=== PATIENT | female | born 1940 | race Caucasian/White ===

== ENCOUNTER 2016-06-04 22:51 | Inpatient (IN) | payer MEDICARE ==
[~2016-06-04] VITALS: Ht 167.6 cm; Wt 85.7 kg
[~2016-06-04 22:51] MED LIST: LEVA500T33 PO; LISI2.5T55 PO; LORT5TAB PO; METO25 PO; METR-1 PO; PROM25SU8 PO; Z.0.UNKNOWN
[2016-06-04 22:53] VITALS: BP 217/93; PULSE 90; RESP 16; TEMP 97.6; O2SAT 97
[2016-06-04] MEDS ORDERED: ASPI81CH CHEW (23:19)
[2016-06-04] MEDS ORDERED: SIMV5TAB3 PO (23:19)
[2016-06-04] MEDS ORDERED: FISHCAP4 PO (23:19)
[2016-06-04] MEDS ORDERED: LISI2.5T3 PO (23:19)
[2016-06-04] MEDS ORDERED: NIAC500T5 PO (23:19)
[2016-06-04] MEDS ORDERED: MUCI30TA2 PO (23:19)
[2016-06-04] MEDS ORDERED: CENTTAB PO (23:19)
[2016-06-04 23:22] VITALS: RESP 18; O2SAT 96
[2016-06-04 23:24] VITALS: BP 159/71; PULSE 80; RESP 19; O2SAT 98
--- NOTE | 2016-06-04 23:36 | PD ---
HPI Chief Complaint: Chest Pain Time Seen by Provider: 23:31 Travel History International Travel<30 days: No Contact w/Intl Traveler<30days: No Traveled to known affect area: No History of Present Illness HPI 75-year-old female presents to the emergency department by private transportation the care of family for evaluation of back pain with referred right upper extremity pain. Patient reports that 2 days ago she had bilateral upper extremity aching that resolved spontaneously. Patient reports she's had previous myocardial infarction with stent placement. Patient states when pain began this evening at 9 PM it was 9/10 intensity mid scapular radiating into the right upper extremity and patient became concerned that she may have been having angina or heart attack. Patient states that she felt like she had some mild indigestion and did have some belching. He should states that she did drink Coca-Cola which provided no relief and did take 2 regular strength aspirin prior to arrival to the emergency prior. Patient reports that her nitroglycerin was no longer effective so she used a friend's nitroglycerin times one which resolved her pain to 0/10 in intensity. Patient denies any associated sweats or nausea vomiting or shortness of breath. Patient denies abdominal pain. Patient reports that she is status post cholecystectomy. Patient has hypertension and dyslipidemia denies diabetes but does admit to ongoing tobacco use one pack per day as well as family history of heart attack with father who was a smoker. Patient rates her discomfort at this time 0/10 intensity. PFSH Past Medical History Narrative Medical CAD myocardial infarction cardiac catheterization with stent placement hypertension dyslipidemia CVA COPD cholecystectomy tobacco use family history heart disease; nursing notes reviewed Blood Disorders: No Heart Rhythm Problems: No Cancer: No Cardiac Catheterization: Yes Cardiovascular Problems: Yes High Cholesterol: Yes Chest Pain: No Congestive Heart Failure: No Cerebrovascular Accident: Yes Coronary Artery Disease: Yes Diabetes: No Endocrine: No Genitourinary: No Hypertension: Yes Immune Disorder: No Musculoskeletal: No Neurologic: No Psychiatric: No Reproductive: No Respiratory: No Myocardial Infarction: No Past Surgical History Abdominal Surgery: Yes (GALLBLADDER) AICD: No Arteriovenous Shunt: No Cardiac Surgery: No Cholecystectomy: Yes Coronary Stent: Yes Ear Surgery: No Endocrine Surgery: No Eye Surgery: No Genitourinary Surgery: No Gynecologic Surgery: No Insulin Pump: No Joint Replacement: No Oral Surgery: No Pacemaker: No Thoracic Surgery: No Other Surgery: Yes (GALLBLADDER 1998) Social History Alcohol Use: No Tobacco Use: Yes (1 PPD) Substance Use: No Allergies-Medications (Allergen,Severity, Reaction): Coded Allergies: Erythromycin (Verified Allergy, Severe, FINGERS SWELL, 06/04/16) Reported Meds & Prescriptions Reported Meds & Active Scripts Active Reported Aspirin 81 Mg Chew 162 Mg CHEW DAILY Niacin 500 Mg Tab 500 Mg PO DAILY Mucinex DM (Dextromethorphan-Guaifenesin) 30-600 Mg Tab 1 Tab PO DAILY PRN Centrum Silver (Multiple Vitamins W/ Minerals) 1 Tab 1 Tab PO DAILY Fish Oil + D3 (Fish Oil-Cholecalciferol) 1,200-1,000 Mg-Unit Cap 1 Cap PO DAILY Lisinopril 2.5 Mg Tab 2.5 Mg PO BID Simvastatin 5 Mg Tab 5 Mg PO DAILY Review of Systems Except as stated in HPI: all other systems reviewed are Neg Physical Exam Narrative GENERAL: Well-developed well-nourished female in no acute distress no respiratory distress SKIN: Warm and dry. HEAD: Normocephalic. EYES: No scleral icterus. No injection or drainage. NECK: Supple, trachea midline. No JVD or lymphadenopathy. CARDIOVASCULAR: Regular rate and rhythm without murmurs, gallops, or rubs. Radial and dorsalis pedis pulses 2+ to palpation bilaterally RESPIRATORY: Breath sounds equal bilaterally. No accessory muscle use. GASTROINTESTINAL: Abdomen soft, non-tender, nondistended. MUSCULOSKELETAL: No cyanosis, or edema. BACK: Nontender without obvious deformity. No CVA tenderness. Data Data Last Documented VS Vital Signs Date Time Temp Pulse Resp B/P Pulse Ox O2 Delivery O2 Flow Rate FiO2 06/05/16 00:59 70 19 124/58 98 06/04/16 23:26 Nasal Cannula 2 06/04/16 22:53 97.6 Orders Electrocardiogram (06/04/16 23:13) Complete Blood Count With Diff (06/04/16 23:13) Basic Metabolic Panel (Bmp) (06/04/16 23:13) Ckmb (Isoenzyme) Profile (06/04/16 23:13) Troponin I (06/04/16 23:13) Chest, Single Ap (06/04/16 23:13) Iv Access Insert/Monitor (06/04/16 23:13) Ecg Monitoring (06/04/16 23:13) Oxygen Administration (06/04/16 23:13) Oximetry (06/04/16 23:13) Act Partial Throm Time (Ptt) (06/04/16 23:31) Prothrombin Time / Inr (Pt) (06/04/16 23:31) Admit Order (Ed Use Only) (06/05/16 ) ^ Saline Lock (06/05/16 01:00) Resp Oxygen Federico C Titrat 1-4 L (06/05/16 ) Notify Dr: Other (06/05/16 01:00) Sodium Chloride 0.9% Flush (Ns Flush) (06/05/16 09:00) Sodium Chloride 0.9% Flush (Ns Flush) (06/05/16 01:00) Labs Laboratory Tests Test 06/04/16 23:14 White Blood Count 8.5 TH/MM3 Red Blood Count 5.07 MIL/MM3 Hemoglobin 15.1 GM/DL Hematocrit 46.2 % Mean Corpuscular Volume 91.2 FL Mean Corpuscular Hemoglobin 29.8 PG Mean Corpuscular Hemoglobin 32.7 % Concent Red Cell Distribution Width 13.7 % Platelet Count 170 TH/MM3 Mean Platelet Volume 10.0 FL Neutrophils (%) (Auto) 52.7 % Lymphocytes (%) (Auto) 38.0 % Monocytes (%) (Auto) 7.2 % Eosinophils (%) (Auto) 1.9 % Basophils (%) (Auto) 0.2 % Neutrophils # (Auto) 4.5 TH/MM3 Lymphocytes # (Auto) 3.2 TH/MM3 Monocytes # (Auto) 0.6 TH/MM3 Eosinophils # (Auto) 0.2 TH/MM3 Basophils # (Auto) 0.0 TH/MM3 CBC Comment DIFF FINAL Differential Comment Prothrombin Time 10.1 SEC Prothromb Time International 0.9 RATIO Ratio Activated Partial 27.5 SEC Thromboplast Time Sodium Level 139 MEQ/L Potassium Level 4.0 MEQ/L Chloride Level 101 MEQ/L Carbon Dioxide Level 29.8 MEQ/L Anion Gap 8 MEQ/L Blood Urea Nitrogen 19 MG/DL Creatinine 1.11 MG/DL Estimat Glomerular Filtration 48 ML/MIN Rate Random Glucose 102 MG/DL Calcium Level 9.3 MG/DL Total Creatine Kinase 75 U/L Troponin I 0.05 NG/ML MDM Medical Decision Making Medical Screen Exam Complete: Yes Emergency Medical Condition: Yes Medical Record Reviewed: Yes Interpretation(s) EKG was sinus rhythm rate [address] elevation or injury pattern change Q wave inferiorly as well as QS in lead V3 age-indeterminate no acute ST elevation CXR: nad CBC & BMP Diagram 06/04/16 23:14 Vital Signs Date Time Temp Pulse Resp B/P Pulse Ox O2 Delivery O2 Flow Rate FiO2 06/05/16 00:59 70 19 124/58 98 06/04/16 23:26 98 Nasal Cannula 2 06/04/16 23:24 80 19 159/71 98 06/04/16 23:22 18 96 Room Air 06/04/16 23:00 87 18 96 Room Air 06/04/16 22:53 97.6 90 16 217/93 97 Troponin I: 0.05 ck: 75 Differential Diagnosis Atypical chest pain, unstable angina/ACS, myocardial infarction, aortic dissection, PE, musculoskeletal pain Narrative Course Patient is on monitoring manager IV access obtained patient is already taken 650 mg of aspirin prior to arrival and one syllable nitroglycerin and presents without chest pain at this time 0/10 in intensity. Plan is to obtain cardiac enzymes EKG reveals no acute ST elevation and will admit patient for further cardiac evaluation Patient waiting comfortably on lab results voicing no concerns or complaints At 1 AM troponin I and CK resulted and found to be in normal range with troponin I upper limit of normal at 0.05; patient continues to deny any recurrent indigestion back pain or arm discomfort also denies any shortness of breath sweats had no nausea or vomiting. Discomfort remains over 10 in intensity. Patient is aware of plan and recommendation for admission and is agreeable to this. Physician Communication Physician Communication discussed with patient's PCP and cardiology contact lens flashing puncher coverage Diagnosis Primary Impression: ACS (acute coronary syndrome) Admitting Information Admitting Physician Requests: Observation Ximena Torres MD Jun 04, 2016 23:36
--- NOTE | 2016-06-04 23:57 | RADRPT ---
EXAM DATE/TIME: 06/04/2016 23:29 [facility] COMPARISON: No previous studies available for comparison. INDICATIONS : Chest pain. MEDICAL HISTORY : Coronary artery disease. SURGICAL HISTORY : Coronary artery stent. ENCOUNTER: Initial ACUITY: 1 day PAIN SCORE: 6/10 LOCATION: Bilateral chest FINDINGS: A single view of the chest demonstrates the lungs to be symmetrically aerated without evidence of mas s, infiltrate or effusion. The cardiomediastinal contours are unremarkable. Osseous structures are intact. CONCLUSION: No evidence of acute cardiopulmonary disease. Rudi Bah MD on June 04, 2016 at 23:55 Board Certified Radiologist. This report was verified electronically.
[2016-06-04 23:59] LABS: AUTOMATED NEUTROPHIL # 4.5 TH/MM3 (1.8-7.7); BASOPHIL % 0.2 % (0.0-2.0); EOSINOPHIL # 0.2 TH/MM3 (0-0.4); EOSINOPHIL % 1.9 % (0.0-4.0); HEMATOCRIT 46.2 % (35.0-46.0); HEMO FLAGS DIFF FINAL; LYMPHOCYTE # 3.2 TH/MM3 (1.0-4.8); MEAN CELL VOLUME 91.2 FL (80.0-100.0); MEAN CORPUSCULAR HEMOGLOBIN 29.8 PG (27.0-34.0); MEAN CORPUSCULAR HGB CONC 32.7 % (32.0-36.0); MONO % 7.2 % (0.0-8.0); NEUT % 52.7 % (16.0-70.0); PLATELET COUNT 170 TH/MM3 (150-450); RED BLOOD COUNT 5.07 MIL/MM3 (4.00-5.30); RED CELL DISTRIBUTION WIDTH 13.7 % (11.6-17.2); WHITE BLOOD COUNT 8.5 TH/MM3 (4.0-11.0)
[2016-06-05] VITALS (15 sets, daily range): BP systolic 124–179; BP diastolic 58–81; PULSE 49–77; RESP 16–22; TEMP 98–98.4; O2SAT 94–98
[2016-06-05 00:15] LABS: BICARBONATE 29.8 MEQ/L (21.0-32.0)
[2016-06-05] MEDS ORDERED: SODIUM CHLORIDE 0.9% FLUSH 10 ML FLUSH IVF PRN (01:00)
[2016-06-05 01:04] LABS: APTT (PATIENT) 27.5 SEC (24.3-30.1); INTERNATIONAL NORMALIZED RATIO 0.9 RATIO; PROTHROMBIN TIME - PATIENT 10.1 SEC (9.8-11.6)
[2016-06-05] MEDS ORDERED: HEPARIN SODIUM - IV 10,000 UNITS/10 ML VIAL IV ONE (01:15)
[2016-06-05] MEDS ORDERED: NALOXONE HCL 0.4 MG/ML AMP IV PRN (01:30)
[2016-06-05] MEDS ORDERED: SODIUM CHLORIDE 0.9% FLUSH 10 ML FLUSH IV FLUSH PRN (01:30)
[2016-06-05] MEDS ORDERED: DEXTROMETHORPHAN GUAIFENESIN PO PRN (01:30)
[2016-06-05] MEDS ORDERED: ACETAMINOPHEN 325 MG TAB PO PRN (01:30)
[2016-06-05] MEDS: HEPARIN-D5W INJ 250 ML IV SCH ×2 (01:44→22:29)
[2016-06-05] MEDS ORDERED: PILL SPLITTER OTHER PRN (01:45)
[2016-06-05 05:49] LABS: HEMATOCRIT 39.4 % (35.0-46.0); MEAN CELL VOLUME 90.3 FL (80.0-100.0); MEAN CORPUSCULAR HEMOGLOBIN 30.8 PG (27.0-34.0); MEAN CORPUSCULAR HGB CONC 34.1 % (32.0-36.0); PLATELET COUNT 153 TH/MM3 (150-450); RED BLOOD COUNT 4.36 MIL/MM3 (4.00-5.30); RED CELL DISTRIBUTION WIDTH 13.5 % (11.6-17.2); REVIEW FLAG FINAL; WHITE BLOOD COUNT 7.1 TH/MM3 (4.0-11.0)
[2016-06-05 06:01] LABS: APTT (PATIENT) 65.5 SEC (24.3-30.1); PROTHROMBIN TIME - PATIENT 10.5 SEC (9.8-11.6)
[2016-06-05] MEDS ORDERED: HEPARIN SODIUM - IV 10,000 UNITS/10 ML VIAL IV PRN ×2 (07:15)
[2016-06-05 08:14] LABS: APTT (PATIENT) 45.3 SEC (24.3-30.1)
[2016-06-05] MEDS: SODIUM CHLORIDE 0.9% FLUSH 10 ML FLUSH IV FLUSH SCH ×2 (09:00→21:00)
[2016-06-05] MEDS ORDERED: SODIUM CHLORIDE 0.9% FLUSH 10 ML FLUSH IV FLUSH SCH (09:00)
[2016-06-05] MEDS ORDERED: NON-FORMULARY DRUG (Fish Oil-Cholecalciferol (Fish Oil + D3) 1 CAP) PO SCH (09:00)
--- NOTE | 2016-06-05 10:36 | HHI.HP ---
History of Present Illness Service FP Primary Care Physician Alcides Zarate, DO Admission Diagnosis ACS Diagnoses: (1) ACS (acute coronary syndrome) Diagnosis: Principal (2) CAD (coronary artery disease) Diagnosis: Secondary (3) Hyperlipidemia Diagnosis: Secondary (4) Hypertension Diagnosis: Secondary Review of Systems Cardiovascular: COMPLAINS OF: Chest pain Gastrointestinal: COMPLAINS OF: Nausea Musculoskeletal: COMPLAINS OF: Joint pain, Back pain Past Family Social History Allergies: Coded Allergies: Erythromycin (Verified Allergy, Severe, FINGERS SWELL, 06/04/16) Past Medical History CAD HTN HLD COPD Past Surgical History CHOLECYSTECTOMY Reported Medications Inpatient Medications Acetaminophen (Tylenol) 650 mg Q4H PRN PO TEMP > 100.4; Start 06/05/16 at 01:30 Aspirin (Aspirin Chew) 162 mg DAILY CHEW ; Start 06/05/16 at 09:00 Heparin Sodium (Porcine) (Heparin Inj) 5,000 units UNSCH PRN IV APTT LESS THAN 25; Start 06/05/16 at 07:15 Heparin Sodium (Porcine) 2500 units 2,500 units UNSCH PRN IV APTT 25 TO 39; Start 06/05/16 at 07:15 Heparin Sodium/ Dextrose (Heparin-D5W Inj) 250 ml @ 0 mls/hr TITRATE IV Last administered on 06/05/16t 01:44; Start 06/05/16 at 01:15 Lisinopril (Prinivil) 2.5 mg BID PO BPM; Start 06/05/16 at 09:00 Miscellaneous (Pill Splitter) 1 ea UNSCH PRN OTHER SEE LABEL COMMENTS; Start at 01:45 Multivitamins (Theragran) 1 tab DAILY PO NS; Start 06/05/16 at 09:00 Naloxone HCl (Narcan Inj) 0.4 mg UNSCH PRN IV SEE LABEL COMMENTS; Start at 01:30 Niacin (Slo-Niacin) 500 mg DAILY PO CM; Start 06/05/16 at 09:00 Non-Formulary Medication 1 cap DAILY PO NS; Start 06/05/16 at 09:00; Stop at 09:00; Status DC Patient Own Medication PT OWN MED: Dextromethorphan-Guai... DAILY PRN PO CHEST CONGESTION AND/OR COUGH; Start 06/05/16 at 01:30; Status Hold Pravastatin Sodium (Pravachol) 10 mg DAILY PO CM; Start 06/05/16 at 09:00 Sodium Chloride (NS Flush) 2 ml BID IV FLUSH ; Start 06/05/16 at 09:00 Active Ordered Medications Inpatient Medications Acetaminophen (Tylenol) 650 mg Q4H PRN PO TEMP > 100.4; Start 06/05/16 at 01:30 Aspirin (Aspirin Chew) 162 mg DAILY CHEW ; Start 06/05/16 at 09:00 Heparin Sodium (Porcine) (Heparin Inj) 5,000 units UNSCH PRN IV APTT LESS THAN 25; Start 06/05/16 at 07:15 Heparin Sodium (Porcine) 2500 units 2,500 units UNSCH PRN IV APTT 25 TO 39; Start 06/05/16 at 07:15 Heparin Sodium/ Dextrose (Heparin-D5W Inj) 250 ml @ 0 mls/hr TITRATE IV Last administered on 06/05/16t 01:44; Start 06/05/16 at 01:15 Lisinopril (Prinivil) 2.5 mg BID PO BPM; Start 06/05/16 at 09:00 Miscellaneous (Pill Splitter) 1 ea UNSCH PRN OTHER SEE LABEL COMMENTS; Start at 01:45 Multivitamins (Theragran) 1 tab DAILY PO NS; Start 06/05/16 at 09:00 Naloxone HCl (Narcan Inj) 0.4 mg UNSCH PRN IV SEE LABEL COMMENTS; Start at 01:30 Niacin (Slo-Niacin) 500 mg DAILY PO CM; Start 06/05/16 at 09:00 Non-Formulary Medication 1 cap DAILY PO NS; Start 06/05/16 at 09:00; Stop at 09:00; Status DC Patient Own Medication PT OWN MED: Dextromethorphan-Guai... DAILY PRN PO CHEST CONGESTION AND/OR COUGH; Start 06/05/16 at 01:30; Status Hold Pravastatin Sodium (Pravachol) 10 mg DAILY PO CM; Start 06/05/16 at 09:00 Sodium Chloride (NS Flush) 2 ml BID IV FLUSH ; Start 06/05/16 at 09:00 Family History father with an [place] Mother of colon cancer Social History smokes a pack per day for 50 years drinks burbon daily Physical Exam Vital Signs Vital Signs Date Time Temp Pulse Resp B/P Pulse Ox O2 Delivery O2 Flow Rate FiO2 06/05/16 10:14 58 16 179/73 97 06/05/16 10:14 49 143/64 94 06/05/16 08:10 98 Nasal Cannula 2.00 06/05/16 08:00 67 18 164/70 95 06/05/16 06:15 61 18 150/59 96 06/05/16 03:55 69 18 140/65 98 06/05/16 01:40 98 Nasal Cannula 2.00 06/05/16 00:59 70 19 124/58 98 06/04/16 23:26 98 Nasal Cannula 2 06/04/16 23:24 80 19 159/71 98 06/04/16 23:22 18 96 Room Air 06/04/16 23:00 87 18 96 Room Air 06/04/16 22:53 97.6 90 16 217/93 97 Physical Exam GENERAL: This is a well-nourished, well-developed patient, in no apparent distress. SKIN: No rashes, ecchymoses or lesions. Cool and dry. HEAD: Atraumatic. Normocephalic. No temporal or scalp tenderness. EYES: Pupils equal round and reactive. Extraocular motions intact. No scleral icterus. No injection or drainage. ENT: Nose without bleeding, purulent drainage or septal hematoma. Throat without erythema, tonsillar hypertrophy or exudate. Uvula midline. Airway patent. NECK: Trachea midline. No JVD or lymphadenopathy. Supple, nontender, no meningeal signs. CARDIOVASCULAR: Regular rate and rhythm without murmurs, gallops, or rubs. RESPIRATORY: Clear to auscultation. Breath sounds equal bilaterally. No wheezes , rales, or rhonchi. GASTROINTESTINAL: Abdomen soft, positive epigastric and r upper quadrant tenderness nondistended. No hepato-splenomegaly, or palpable masses. No guarding. MUSCULOSKELETAL: Extremities without clubbing, cyanosis, or edema. No joint tenderness, effusion, or edema noted. No calf tenderness. Negative Homans sign bilaterally. NEUROLOGICAL: Awake and alert. Cranial nerves II through XII intact. Motor and sensory grossly within normal limits. Five out of 5 muscle strength in all muscle groups. Normal speech. Laboratory Laboratory Tests Test 06/04/16 06/05/16 06/05/16 23:14 05:25 07:40 White Blood Count 8.5 7.1 Red Blood Count 5.07 4.36 Hemoglobin 15.1 13.4 Hematocrit 46.2 39.4 Mean Corpuscular Volume 91.2 90.3 Mean Corpuscular Hemoglobin 29.8 30.8 Mean Corpuscular Hemoglobin 32.7 34.1 Concent Red Cell Distribution Width 13.7 13.5 Platelet Count 170 153 Mean Platelet Volume 10.0 9.7 Neutrophils (%) (Auto) 52.7 Lymphocytes (%) (Auto) 38.0 Monocytes (%) (Auto) 7.2 Eosinophils (%) (Auto) 1.9 Basophils (%) (Auto) 0.2 Neutrophils # (Auto) 4.5 Lymphocytes # (Auto) 3.2 Monocytes # (Auto) 0.6 Eosinophils # (Auto) 0.2 Basophils # (Auto) 0.0 CBC Comment DIFF FINAL Differential Comment Prothrombin Time 10.1 10.5 Prothromb Time International 0.9 1.0 Ratio Activated Partial 27.5 65.5 45.3 Thromboplast Time Sodium Level 139 Potassium Level 4.0 Chloride Level 101 Carbon Dioxide Level 29.8 Anion Gap 8 Blood Urea Nitrogen 19 Creatinine 1.11 Estimat Glomerular Filtration 48 Rate Random Glucose 102 Calcium Level 9.3 Total Creatine Kinase 75 Troponin I 0.05 0.55 Result Diagram: 06/05/1652406/04/16 231 Imaging Last 24 hours Impressions Chest X-Ray 06/04/16 2313 Signed Impressions: Service Date/Time: Saturday, June 04, 2016 23:29 - CONCLUSION: No evidence of acute cardiopulmonary disease. Rudi Bah MD Course no further cp since in ED Assessment and Plan Problem List: (1) ACS (acute coronary syndrome) Status: Acute (2) CAD (coronary artery disease) Status: Acute Plan: cardiology consult bartholemew (3) Hyperlipidemia Status: Acute (4) Hypertension Status: Acute (5) Epigastric abdominal pain Status: Acute Plan: may be gastric or biliary in nature order hemoccult and us of abdomen Assessment and Plan ACS, HTN, HLD, EPIGASTRIC PAIN Discussed Condition With patient and daughter Physician Attestation The exam, history, and the medical decision-making described in the above note were completed with the assistance of the mid-level provider. I reviewed and agree with the findings presented. I attest that I had a [id number] encounter with the patient on the same day, and personally performed and documented my assessment and findings in the medical record. Alcides Zarate DO Jun 05, 2016 10:35
[2016-06-05] MEDS: MULTIVITAMIN TAB PO SCH (10:45)
[2016-06-05] MEDS: NIACIN 500 MG EXTENDED RELEASE TAB PO SCH (10:45)
[2016-06-05] MEDS: PRAVASTATIN SOD 10 MG TAB PO SCH (10:45)
[2016-06-05] MEDS: ASPIRIN 81 MG CHEW TAB CHEW SCH (10:45)
[2016-06-05] MEDS: LISINOPRIL 5 MG TAB PO SCH ×2 (10:46→21:20)
--- NOTE | 2016-06-05 12:35 | RADRPT ---
EXAM DATE/TIME: 06/05/2016 11:06 [facility] COMPARISON: CT ABDOMEN & PELVIS W CONTRAST, June 08, 2010, 16:51. INDICATIONS : Abdominal pain. MEDICAL HISTORY : Hypercholesterolemia. Hypertension. CVA. CAD. SURGICAL HISTORY : Coronary artery stent. Cholecystectomy. Cardiac cath. ENCOUNTER: Initial ACUITY: 1 day PAIN SCORE: 4/10 LOCATION: Abdomen. MEASUREMENTS: LIVER: 17.1 cm length COMMON DUCT: 4 mm RIGHT KIDNEY: 10.2 x 4.6 x 5.6 cm LEFT KIDNEY: 10.8 x 5.8 x 5.7 cm SPLEEN: 10.4 cm length AORTA: 2.2cm maximal FINDINGS: LIVER: Liver is diffusely hyperechoic indicating mild hepatic steatosis. No focal mass identified. Portal ve nous flow is hepatopedal. COMMON DUCT: No intraluminal mass or stone visualized. GALLBLADDER: Status post cholecystectomy. PANCREAS: The visualized portions are within normal limits. RIGHT KIDNEY: No hydronephrosis, stone or mass. LEFT KIDNEY: No hydronephrosis, stone or mass. SPLEEN: No focal lesion. AORTA: Non aneurysmal. IVC: Within normal limits. CONCLUSION: Mild hepatic steatosis. Willie Jacobson MD on June 05, 2016 at 12:32 Board Certified Radiologist. This report was verified electronically.
--- NOTE | 2016-06-05 16:11 | MB ---
cc: SHUKRI VASQUES DATE OF CONSULTATION: 06/05/2016. REASON FOR CONSULTATION: Chest pain / non S-T elevation myocardial infarction. HISTORY OF PRESENT ILLNESS: 75-year-old female with past medical history significant for coronary artery disease status post percutaneous coronary intervention in the setting of a heart attack, hypertension, hyperlipidemia, CVA, COPD who presented to the emergency department for evaluation of back pain with associated right upper extremity pain. She reports the pain began yesterday at 9:00 p.m. and it was 9/ 10 in intensity, it was mid-scapula radiating to the right upper extremity for which she became concerned and presented to the emergency department for evaluation. Of note, this pain was not like the pain she had when she had the heart attack. She reports the discomfort in the back and the shoulders went away with nitroglycerin sublingual. She denies sweats, nausea or vomiting, diarrhea, fevers, chills, abdominal pain, lightheadedness. EKG shows sinus rhythm with nonspecific S-T changes. Troponin markers are trending up with the highest being 0.69. Thus cardiology has been consulted for further management and evaluation. REVIEW OF SYSTEMS: Negative except for that mentioned in the history of present illness. PAST MEDICAL HISTORY: 1. Coronary artery disease status post myocardial infarction and stents. 2. Hypertension. 3. Hyperlipidemia. 4. CVA. 5. COPD. 6. Cholecystectomy. 7. Tobacco use. HOME MEDICATIONS: 1. Aspirin 81 milligrams p.o. daily. 2. Lisinopril 2.5 milligrams p.o. daily. 3. Niacin 500 milligrams p.o. daily. 4. Simvastatin 5 milligrams p.o. daily. SOCIAL HISTORY: Tobacco use - yes. No alcohol or illicit drug use. ALLERGIES: ERYTHROMYCIN. PHYSICAL EXAMINATION: VITAL SIGNS: Temperature 97, respiratory rate 18, heart rate 58, blood pressure 143/64, O2 sat 97% 2L NC. GENERAL: She is awake, alert and oriented times three in no acute distress. HEAD, EYES, EARS, NOSE, THROAT/NECK: The patient has no jugular venous distention. No carotid bruits. HEART: Regular rate and rhythm. There are no murmurs, rubs or gallops. LUNGS: Clear to auscultation bilaterally. ABDOMEN: The abdomen is soft, nontender and nondistended with positive bowel sounds. EXTREMITIES: There is no cyanosis or edema. Pulses throughout. LABORATORY DATA: Hemoglobin 13, hematocrit 34, platelet count 153,000. Coagulation: INR was one. Chemistries: Sodium 139, potassium 4.0, BUN 19, creatinine 1.1. Troponin 0.05, 0.55 and 0.69. IMAGING STUDIES: Chest x-ray: No acute pulmonary process. Abdomen: Mild hepatic steatosis. EKGS: EKG shows sinus rhythm with left ventricular hypertrophy right voltage, no specific ST changes. Echocardiogram done in 2006 shows ejection fraction of 50% with inferior hypokinesis. [facility] [address] Dr. De Leon RCA 3.0 x 28 mm bare-metal stent. ASSESSMENT AND PLAN: 75-year-old female with known coronary artery disease admitted with NSTEMI and symptoms of angina. She remains afebrile, hemodynamically stable and chest pain -free. On Heparin drip. Given the patient's presentation, and elevated troponin' s, I think it would reasonable to pursue a left heart catheterization / percutaneous coronary intervention to further address progression of coronary artery disease. The risks and benefits of left heart catheterization / percutaneous coronary intervention including but not limited to neurovascular trauma, acute kidney injury, bleeding, stroke, emergent bypass surgery and . The patient understands the risks and is willing to proceed. Recommendations: 1. Keep NPO aftermidnight for [facility] in AM 2. Continue aggressive medical management for NSTEMI with aspirin, heparin drip , beta blockers, DAWIT inhibitors and statins 3. 2-D echocardiogram. 4. Continue telemetry monitoring. Further therapy to be determined. Thank you for the opportunity to take part in the care of this patient. MD RAHUL Joseph/JCAngella /2:55 PM /3:18 PM VALERIANO
[2016-06-05] MEDS ORDERED: LORazepam 0.5 MG TAB PO ONE (17:30)
[2016-06-05 17:36] LABS: APTT (PATIENT) 40.7 SEC (24.3-30.1)
[2016-06-05] MEDS ORDERED: CHLORHEXIDINE GLUCONATE 2 % 1 PACK (2 CLOTHS)(extra cloths) TOPICAL PRN (18:15)
--- NOTE | 2016-06-05 18:33 | EKG ---
Date Performed: 06/05/2016 Time Performed: 10:53:02 PTAGE: 75 years EKG: SINUS BRADYCARDIA POSSIBLE LEFT ATRIAL ENLARGEMENT LEFT VENTRICULAR HYPERTROPHY AND ST-T CH ARBEN ABNORMAL ECG PREVIOUS TRACING : 06/05/2016 06.11 Compared to prior tracing no significant change DOCTOR: Bull Lazar Interpretating Date/Time 06/05/2016 18:32:05
--- NOTE | 2016-06-05 18:37 | EKG ---
Date Performed: 06/05/2016 Time Performed: 06:11:38 PTAGE: 75 years EKG: SINUS BRADYCARDIA LEFT VENTRICULAR HYPERTROPHY AND ST-T CHANGE ABNORMAL ECG PREVIOUS TRACING : 06/08/2010 15.30 Compared to the previous tracing rate slower DOCTOR: Bull Lazar Interpretating Date/Time 06/05/2016 18:36:26
[2016-06-05] MEDS: CHLORHEXIDINE GLUCONATE 2 % 1 PACK (2 CLOTHS)(taper/protocol) TOPICAL SCH (21:21)
[2016-06-05] MEDS ORDERED: LORazepam 0.5 MG TAB PO PRN (21:30)
--- NOTE | 2016-06-05 22:27 | EKG ---
Date Performed: 06/04/2016 Time Performed: 23:03:32 PTAGE: 75 years EKG: Sinus rhythm WITH SINUS ARRHYTHMIA LEFT VENTRICULAR HYPERTROPHY AND ST-T CHANGE ABNORMAL ECG Compared to prior tr acing no significant change DOCTOR: Bull Lazar Interpretating Date/Time 06/05/2016 22:26:01
[2016-06-06] VITALS (10 sets, daily range): BP systolic 116–181; BP diastolic 57–97; PULSE 54–68; RESP 19–25; TEMP 97.6–98.3; O2SAT 95–96
[2016-06-06 06:18] LABS: AUTOMATED NEUTROPHIL # 2.1 TH/MM3 (1.8-7.7); BASOPHIL % 0.4 % (0.0-2.0); EOSINOPHIL # 0.2 TH/MM3 (0-0.4); EOSINOPHIL % 3.2 % (0.0-4.0); HEMATOCRIT 42.7 % (35.0-46.0); HEMO FLAGS DIFF FINAL; LYMPH % 50.8 % (9.0-44.0); LYMPHOCYTE # 2.8 TH/MM3 (1.0-4.8); MEAN CELL VOLUME 91.8 FL (80.0-100.0); MEAN CORPUSCULAR HEMOGLOBIN 29.4 PG (27.0-34.0); MONO % 7.3 % (0.0-8.0); NEUT % 38.3 % (16.0-70.0); PLATELET COUNT 132 TH/MM3 (150-450); RED BLOOD COUNT 4.65 MIL/MM3 (4.00-5.30); RED CELL DISTRIBUTION WIDTH 13.6 % (11.6-17.2); WHITE BLOOD COUNT 5.5 TH/MM3 (4.0-11.0)
[2016-06-06 06:27] LABS: APTT (PATIENT) 41.1 SEC (24.3-30.1)
[2016-06-06 06:42] LABS: ALT (GPT) 18 U/L (10-53); ANION GAP 6 MEQ/L (5-15); AST (GOT) 17 U/L (15-37); BICARBONATE 27.6 MEQ/L (21.0-32.0); BLOOD UREA NITROGEN 19 MG/DL (7-18); CHLORIDE 107 MEQ/L (98-107); GLOMERULAR FILTRATION RATE 68 ML/MIN (>89); POTASSIUM 4.2 MEQ/L (3.5-5.1); SODIUM (NA) 141 MEQ/L (136-145)
[2016-06-06 06:46] LABS: ALKALINE PHOSPHATASE 94 U/L (45-117); TOTAL BILIRUBIN ADULT 0.2 MG/DL (0.2-1.0)
--- NOTE | 2016-06-06 08:51 | HHI.PR ---
Subjective Remarks Patient resting comfortably in bed. Denies any CP, back pain, or SOB. Scheduled for heart cath today. Objective Vital Signs Date Time Temp Pulse Resp B/P Pulse Ox O2 Delivery O2 Flow Rate FiO2 06/06/16 06:00 59 06/06/16 04:00 98.3 62 25 161/80 96 06/06/16 04:00 62 06/06/16 02:00 54 06/06/16 00:00 59 06/06/16 00:00 98.0 59 24 130/97 95 06/05/16 23:00 74 06/05/16 22:00 73 06/05/16 20:54 95 21 06/05/16 20:00 98.4 73 22 139/73 96 06/05/16 20:00 73 06/05/16 18:00 58 06/05/16 17:34 98.3 77 22 175/81 98 06/05/16 14:25 98.3 69 22 160/74 98 06/05/16 13:27 98.0 66 22 98 06/05/16 10:14 58 16 179/73 97 06/05/16 10:14 49 143/64 94 I/O 06/05/16 06/05/16 06/05/16 06/06/16 06/06/16 06/06/16 07:00 15:00 23:00 07:00 15:00 23:00 Intake Total 901 ml 35 ml Output Total 450 ml 700 ml Balance 451 ml -665 ml Intake Oral 650 ml IV Total 251 ml 35 ml Output Urine Total 450 ml 700 ml # Bowel Movements 0 0 Result Diagram: 06/06/16 0524 06/06/16 0524 Imaging Last 72 hours Impressions Abdomen Ultrasound 06/05/16 0000 Signed Impressions: Service Date/Time: Sunday, June 05, 2016 11:06 - CONCLUSION: Mild hepatic steatosis. Willie Jacobson MD Chest X-Ray 06/04/16 4174 Signed Impressions: Service Date/Time: Saturday, June 04, 2016 23:29 - CONCLUSION: No evidence of acute cardiopulmonary disease. Rudi Bah MD Objective Remarks GENERAL: Alert and cooperatibe SKIN: Warm and dry. HEAD: Normocephalic. EYES: No scleral icterus. No injection or drainage. NECK: Supple, trachea midline. No JVD or lymphadenopathy. CARDIOVASCULAR: Regular rate and rhythm without murmurs, gallops, or rubs. RESPIRATORY: Breath sounds equal bilaterally. No accessory muscle use. GASTROINTESTINAL: Abdomen soft, non-tender, nondistended. MUSCULOSKELETAL: No cyanosis, or edema. BACK: Nontender without obvious deformity. No CVA tenderness. Medications and IVs Current Medications Medications (Trade) Dose Ordered Sig/Minda Route Start Time Stop Time Status Last Admin (Heparin Inj) 5,000 units UNSCH PRN IV 06/05/16 07:15 Heparin Sodium (Porcine) 2500 units 2,500 units UNSCH PRN IV 06/05/16 07:15 (Heparin-D5W Inj) 250 ml @ 0 mls/hr TITRATE IV 06/05/16 01:15 06/05/16 22:29 (NS Flush) 2 ml UNSCH PRN IV FLUSH 06/05/16 01:30 (NS Flush) 2 ml BID IV FLUSH 06/05/16 09:00 06/05/16 21:00 (Tylenol) 650 mg Q4H PRN PO 06/05/16 01:30 (Narcan Inj) 0.4 mg UNSCH PRN IV 06/05/16 01:30 (Aspirin Chew) 162 mg DAILY CHEW 06/05/16 09:00 06/05/16 10:45 Patient Own Medication PT OWN MED: Dextromethorphan-Guai... DAILY PRN PO 06/05/16 01:30 Hold (Prinivil) 2.5 mg BID PO 06/05/16 09:00 06/05/16 21:20 (Theragran) 1 tab DAILY PO 06/05/16 09:00 06/05/16 10:45 (Slo-Niacin) 500 mg DAILY PO 06/05/16 09:00 06/05/16 10:45 (Pravachol) 10 mg DAILY PO 06/05/16 09:00 06/05/16 10:45 (Pill Splitter) 1 ea UNSCH PRN OTHER 06/05/16 01:45 (Pneumovax-23 Inj) 25 mcg ONCE ONCE IM 06/06/16 10:00 06/06/16 10:01 (Ativan) 0.5 mg Q4H PRN PO 06/05/16 21:30 Miscellaneous Information Patient in critical care unit? Ass... [id number] .XX 06/05/16 18:15 (Chlorhexidine 2% Cloth) 3 pack DAILY@04 TOPICAL 06/06/16 04:00 06/10/16 04:01 06/05/16 21:21 (Chlorhexidine 2% Cloth) 3 pack UNSCH PRN TOPICAL 06/05/16 18:15 06/10/16 18:10 Assessment and Plan Problem List: (1) ACS (acute coronary syndrome) Status: Acute Plan: Positive troponin. On heparin and aspirin. Heart cath planned for 11 today. (2) Hypertension Status: Acute Plan: On lang inhibitor will monitor (3) Hyperlipidemia Status: Acute Plan: Lipitor ordered. Assessment and Plan Assessment and plan discussed with Dr. Zarate Discussed Condition With Nursing Discharge Planning Home with [facility] Physician Attestation I have examined this patient and reviewed this note and I agree with these findings and plan of care Alicia Kendall [facility] June 06, 2016 08:51
[2016-06-06] MEDS: LISINOPRIL 5 MG TAB PO SCH ×2 (09:05→20:54)
[2016-06-06] MEDS: NIACIN 500 MG EXTENDED RELEASE TAB PO SCH (09:05)
[2016-06-06] MEDS: MULTIVITAMIN TAB PO SCH (09:06)
[2016-06-06] MEDS: PRAVASTATIN SOD 10 MG TAB PO SCH (09:06)
[2016-06-06] MEDS: ASPIRIN 81 MG CHEW TAB CHEW SCH (09:07)
[2016-06-06] MEDS: SODIUM CHLORIDE 0.9% FLUSH 10 ML FLUSH IV FLUSH SCH ×2 (09:08→20:53)
[2016-06-06] MEDS ORDERED: PNEUMOCOCCAL POLYVALENT INJ 25 MCG/0.5 ML SYR IM ONE (10:00)
[2016-06-06] MEDS ORDERED: HEPARIN-NS/PF INJ 500 ML ONE ×2 (10:40→11:22)
[2016-06-06] MEDS ORDERED: MIDAZOLAM HCL 2 MG/2 ML VIAL ONE (10:41)
[2016-06-06] MEDS ORDERED: HEPARIN SODIUM - IV 10,000 UNITS/10 ML VIAL ONE (11:18)
[2016-06-06] MEDS ORDERED: IOHEXOL 350 MG/ML 100 ML BTL (for Cath Lab) OTHER ONE (11:50)
[2016-06-06] MEDS ORDERED: TICAGRELOR 90 MG TAB PO ONE ×2 (11:58→12:00)
[2016-06-06] MEDS ORDERED: SODIUM CHLOR 0.9% 1000 ML INJ 1,000 ML IV SCH (11:59)
[2016-06-06] MEDS ORDERED: ATROPINE SULFATE 1 MG/ML VIAL IV PRN (12:00)
[2016-06-06] MEDS ORDERED: MISC INFORMATION XX ONE (12:00)
[2016-06-06] MEDS ORDERED: ONDANSETRON HCL 4 MG/2 ML VIAL IV PRN (12:00)
--- NOTE | 2016-06-06 12:25 | CATHPROC ---
[employer] (PV[employer]) HIS Report Study Information Study Number Admission Scheduled Start Study Start [id number] 06/05/2016 06/06/2016 Jun 06 2016 10:33AM Referring Institution Admit Source Facility Department 1 Emergency department [facility] Physician and Clinical Staff Initial Da Smiley Bearing Inspector Wilbert Araujo,NOEMY Recorder Vickie Curry,TIFFANY TECH2 Scrub Hosterman, Yuriy,RT(R) Procedures Performed Procedure Location (Site) Vessel Name Coronary Angiograms LCA Left Coronary Coronary Angiograms RCA Right Coronary Drug Eluting Inflatio LAD Mid Left Coronary L Heart Cath LV Gram-hand inj. LV LV Ventricle PTCA LAD Mid Left Coronary PTCA RCA Prox Right Coronary Wire insertion Fem Art (right) Femoral Art Equipment Time Etcher Enameling Description Size Mfg Part Number Used/Scraped COPILOT VALVE, BLEEDBACK 11:13 TAN [employer] C[employer] [id number] Used CONTROL PERCLOSE, PRO GLIDE CLOSER 11:46 TAN CRITICAL CARE FR 6 [id number] Used DEVICE TRANSDUCER, TRUWAVE 10:35 PAEZ MENDENHALL * [id number] Used W/STOCKCOCK INTRODUCER SET, [id number]- 10:35 [employer] INC. FR 5 Used MICROPUNCTURE, STIFFENED SC-NT-U-SST 10:35 Try[employer]abs INDUSTRIES PACK, CCL CUSTOM * [id number] Used 11:39 MEDTRONIC BALLOON, 2.5 X 10MM EUPHORA 10MM [id number] Used BALLOON, 3.0 X 12MM NC 11:45 MEDTRONIC 12MM [id number] Used EUPHORA BALLOON, 3.5 X 12MM NC 11:20 MEDTRONIC 12MM [id number] Used EUPHORA BALLOON, 4.0 X 20MM NC 11:29 MEDTRONIC 20MM [id number] Used EUPHORA STENT, 2.75 14 RESOLUTE 11:41 MEDTRONIC 2.75 14 [id number] Used INTEGRITY RX 11:13 MEDTRONIC/AVE EBU 3.5 Z2 GUIDE CATHETER FR 6 [id number] Used 11:25 Ringio MEDICAL 30 SARA INDEFLATOR [id number] Used 10:35 Ringio MEDICAL WIRE, 3MMJ .035 180CM 180CM [id number] Used 10:35 NAMIC MANIFOLD, 4 PORT * [id number] Used 10:35 NYCOMED OMNIPAQUE, 350 MG, 100ML 100ML [id number] Used 10:35 VIGIL MEDICAL BLANKET,WARM AIR CCL * [id number] Used 10:35 TERUMO MEDICAL SHEATH, FR5 TERUMO (10CM) FR 5 [id number] Used 11:11 TERUMO MEDICAL SHEATH, FR6 TERUMO (10CM) FR 6 [id number] Used WIRE, RUNTHROUGH NS FLOPPY 11:21 TERUMO MEDICAL 180CM [id number] Used .014 180CM Equipment Model, Serial, Lot Number and Expiration Data Description Model Number Serial Number Lot Number Expiration Date BALLOON, 3.0 X 12MM NC [id number] 03-16-2018 EUPHORA BALLOON, 4.0 X 20MM NC [id number] 01-27-2018 EUPHORA STENT, 2.75 14 RESOLUTE [id number] 03-16-2018 INTEGRITY RX History: Current Medications Medication Dosage/Unit Route Frequency Last Date/Time Taken ASA 81 mg Oral Daily LISINOPRIL 2.5 mg Oral Daily History: Allergies Allergy Reaction Erythromycin FINGERS SWELL History: Risk Factors Hypertension Dyslipidemia Previous NV Previous Heart Failure Yes Yes Yes No Prior Valve Prior PCI Prior PCIDate Prior CABG Surgery No Yes 02/06/2006 No Cerebrovascular Peripheral Artery Chronic Lung On Dialysis Diabetes Disease Disease Disease No Yes No Yes No History: Symptoms/Diagnosis Selection Items Chest pain History: CV Disease Selection Items Known CAD NV History: Stress Tests Stress or Imaging Studies Performed No History: NV/CV Data Previous NV Time 10 Years History: Other Current Smoker Method Packs a Day Years Used Pack Years Yes Cigarettes 1 50 50 Labs Hgb (g/dl) RBC (MIL/MM3) WBC (l/cumm) Platelets (thousands) 12.00-18.00 4.80-6.20 4.80-10.80 140.00-450.00 13.4 4.3 7.1 153 Glucose (mg/dl) BUN (mg/dl) Creatinine (mg/dl) BUN:Creatinine (1:x) 60.00-110.00 8.00-20.00 0.10-9.00 10.00-20.00 102 19 0.8 23.8 Na (meq/l) K (meq/l) Cl (meq/l) CO2 (mmol/L) Ca (mg/dl) 138.00-146.00 3.80-5.10 101.00-111.00 23.00-30.00 9.00-10.50 141 4.2 107 27.6 9.3 PT (sec) PTT (sec) INR (PTT:PT) 9.40-11.40 25.10-32.70 0.50-2.00 10.5 45.3 1 Troponin I (ng/ml) CPK (u/l) CPK-MB (ng/ML) 0.40-2.30 37.00-289.00 0.00-7.00 0.69 75 Not Drawn Medication Medication Total Dose (Bolus/Oral) Medication Total Dosage/Unit 1% XYLOCAINE 20 mL BRILLINTA 180 mg FENTANYL 50 mcg HEPARIN 5000 units VERSED 2 mg Medications (Bolus/Oral) Medication Time Given Dosage/Unit Administered By Reason VERSED 06/06/2016 11:03:11 AM 1 mg Wilbert Araujo 1 mg VERSED given in lab by Wilbert Araujo RN in Left Antecubital via Peripheral IV. Ordered by Da Velazco. 1% XYLOCAINE 06/06/2016 11:04:09 AM 20 mL Da Humphrey 20 mL 1% XYLOCAINE given in lab by Da Humphrey in Right Groin via Subcutaneous. Ordered by Da Velazco. FENTANYL 06/06/2016 11:04:24 AM 25 mcg Wilbert Araujo 25 mcg FENTANYL given in lab by Wilbert Araujo RN in Left Antecubital via Peripheral IV. Ordered by Da Humphrey. HEPARIN 06/06/2016 11:24:01 AM 5000 units Wilbert Araujo 5000 units HEPARIN given in lab by Wilbert Araujo RN in Left Antecubital via Peripheral IV. Ordered by Da Humphrey. VERSED 06/06/2016 11:40:09 AM 1 mg Wilbert Araujo 1 mg VERSED given in lab by Wilbert Araujo RN in Left Antecubital via Peripheral IV. Ordered by Da Velazco. FENTANYL 06/06/2016 11:40:26 AM 25 mcg Wilbert Araujo 25 mcg FENTANYL given in lab by Wilbert Araujo RN in Left Antecubital via Peripheral IV. Ordered by Da Humphrey. BRILLINTA 06/06/2016 11:53:53 AM 180 mg Wilbert Araujo 180 mg BRILLINTA given in lab by Wilbert Araujo RN in Per mouth via Oral. Ordered by Clarence Humphrey Medication (Drip) Medication Time Given Dosage/Unit Concentration/Unit Diluent (ml) Soluti on IV Solutions 06/06/2016 10:36:06 AM 0 mL (IV) 500 NaCl .9 Patient arrived on IV Solutions given by Wilbert Araujo RN in Left Antecubital via Peripheral IV. Pu mp/Drip Flow = 20 ml/hr using NaCl .9. Initial Case Assessment Cardiovascular HR Rhythm NIBP Chest Pain 56 SB 139/92 0 Circulatory - Right Pulses Dorsalis Pedis Femoral 1 1 Scale (0,1,2,3,4,d) Circulatory - Left Pulses Dorsalis Pedis Femoral 1 1 Scale (0,1,2,3,4,d) Neurological State Oriented to time-place- Alert Moves all extremities person Respiration - General SpO2 (%) 98 Final Case Assessment Cardiovascular HR Rhythm NIBP Chest Pain 52 SB 162/63 0 Circulatory - Right Pulses Dorsalis Pedis Femoral 1 1 Scale (0,1,2,3,4,d) Circulatory - Left Pulses Dorsalis Pedis Femoral 1 1 Scale (0,1,2,3,4,d) Neurological State Oriented to time-place- Alert Moves all extremities person Respiration - General Respiration Rate SpO2 (%) (B/min) 14 97 Chronological Log Time Study Chronological Log 10:30:22 Patient arrived via Bed. 10:30:27 Patient Name, D.O.B, / Armband Verified By R.N. 10:30:30 Pre-op and post- op instructions given; patient acknowledges understanding of instructions. 10:33:31 Verbal Stimulation=2 Physical Stimulation=2 Airway=2 Respiration=2 TOTAL=8. (0=absent, 1=li mited, 2=present) 10:35:09 Presedation assessment performed by Train Brakeman RN. 10:35:10 Patient has been NPO for More than 6Hrs. 10:35:11 Skin Breakdown-none 10:35:13 Aguila Prominences Protected 10:35:16 A # 20 IV was noted in the Antecubital (left). Grade = patent Patient arrived on IV Solutions given by Wilbert Araujo RN in Left Antecubital via Peripheral IV. Pump/Drip Flow = 20 10:36:06 ml/hr using NaCl .9. 10:36:44 History and physical on the chart or being dictated. Vitals capture started with the following parameters, Patient=Adult, Interval=5 min, Initial Pr ttfhuh=900 mmHg, 10:36:50 Deflation Rate=5 mmHg Vitals capture started with the following parameters, Patient=Adult, Interval=5 min, Initial Pr cezdea=770 mmHg, 10:39:50 Deflation Rate=5 mmHg 10:40:04 Bilateral groins prepped with 2% chlorhexidine, and draped after a 3 min. waiting time. HR=54 bpm, XRXL=423/68 mmhg, SpO2=97.0 %, Resp=0 B/min, EtCO2=0 mmHg, Apnea=0 Seconds, Pain=0, 10:40:32 Mckinley=2 HR=48 bpm, ODLX=858/92 mmhg, SpO2=99.0 %, Resp=0 B/min, EtCO2=0 mmHg, Apnea=0 Seconds, Pain=0, 10:45:31 Mckinley=2 Assessment: Initial Case, HR=56 BPM, Rhythm=SB, FYCF=360/92 mmhg, Chest Pain=0 Right Pulses: Stoney Ped=1, Femoral=1 10:46:49 Left Pulses: Stoney Ped=1, Femoral=1 Neurological: State=Alert, Ox3, SKY Respiration: SpO2=98 % 10:49:22 Reference ECG taken 10:50:13 Pressure channel 1 zeroed. 10:51:13 HR=52 bpm, BZOI=291/51 mmhg, SpO2=99.0 %, Resp=0 B/min, EtCO2=26 mmHg, Apnea=3 Seconds HR=48 bpm, ODYW=626/63 mmhg, EzJ2=389.0 %, Resp=8 B/min, EtCO2=34 mmHg, Apnea=9 Seconds, Pain=0 , 10:55:35 Mckinley=2 10:56:45 MD paged 10:58:47 MD arrived. 10:59:29 Consent signed by the physician and the patient and verified by the Train [employer] staff. 11:00:34 HR=51 bpm, TQKH=531/62 mmhg, CjW5=690.0 %, Resp=6 B/min, EtCO2=31 mmHg, Apnea=8 Seconds 11:03:11 1 mg VERSED given in lab by Wilbert Araujo, RN in Left Antecubital via Peripheral IV. Order ed by Da Humphrey. Time Out. Correct patient, correct procedure,correct physician, power injector not loaded with contrast with surgical 11:03:39 team present. Time Out Concurred by , individual staff in procedure 11:04:07 Case Start 20 mL 1% XYLOCAINE given in lab by Da Humphrey in Right Groin via Subcutaneous. Ordered b y Milagro 11:04:09 Da. 11:04:24 25 mcg FENTANYL given in lab by Wilbert Araujo, NOEMY in Left Antecubital via Peripheral IV. O rdered by Da Humphrey. 11:05:35 HR=49 bpm, SHOL=307/59 mmhg, UgU9=915.0 %, Resp=8 B/min, EtCO2=16 mmHg, Apnea=14 Seconds 11:07:00 Access site was Femoral Artery. Right A INTRODUCER SET, MICROPUNCTURE, STIFFENED FR 5 was advanced into the Fem Art (right) using the :07:59 Percutaneous technique. A SHEATH, FR5 TERUMO (10CM) FR 5 was exchanged in the Fem Art (right). This was necessary in or bunny to 11:08:16 accomodate a larger catheter. 11:08:50 An injection in the Fem Art (right) was made through the SHEATH, FR5 TERUMO (10CM) FR 5. A JL 4.0 INFINITI CATHETER FR 5 was advanced over a wire. OMNIPAQUE, 350 MG, 100ML 100ML was us ed for 11:09:01 injections. Recorded Pressure: Ao, HR=52, Condition=Condition 1 11:09:41 (Aorta) Ao 154/46/83 11:09:50 The LCA was injected and visualized at various angles. OMNIPAQUE, 350 MG, 100ML 100ML used . 11:10:28 HR=50 bpm, MEND=969/74 mmhg, SpO2=99.0 %, Resp=15 B/min, EtCO2=27 mmHg, Apnea=3 Seconds After removing the current catheter a JR 4.0 INFINITI CATHETER FR 5 was advanced over a wire. c ontrast was used 11:11:56 for injections. 11:13:00 The RCA was injected and visualized at various angles. OMNIPAQUE, 350 MG, 100ML 100ML used . After removing the current catheter a PIGTAIL ANG. INFINITI CATHETER FR 5 was advanced over a W CECIL, 3MMJ .035 11:14:48 180CM 180CM. OMNIPAQUE, 350 MG, 100ML 100ML was used for injections. 11:15:31 HR=52 bpm, PNYE=722/65 mmhg, IeC6=701.0 %, Resp=20 B/min, EtCO2=16 mmHg, Apnea=0 Seconds Recorded Pressure: LV, HR=49, Condition=Condition 1 11:16:45 (Left Ventricle) LV 152/7/20 11:17:27 The LV was manually injected with 10 cc's and visualized. OMNIPAQUE, 350 MG, 100ML 100ML us ed. Recorded Pressure: LV, Ao, HR=54, Condition=Condition 1 11:17:47 (Left Ventricle) LV 169/2/15, (Aorta) Ao 157/38/83 11:19:27 Catheter was removed 11:20:34 HR=55 bpm, ARTP=815/60 mmhg, SpO2=98.0 %, Resp=18 B/min, EtCO2=9 mmHg, Apnea=2 Seconds A SHEATH, FR6 TERUMO (10CM) FR 6 was exchanged in the Fem Art (right). This was necessary in or bunny to 11:20:42 accomodate a larger catheter. A JR 4.0 GUIDE CATHETER FR 6 was advanced over a wire. OMNIPAQUE, 350 MG, 100ML 100ML was used for 11:21:21 injections. 11:22:37 A WIRE, RUNTHROUGH NS FLOPPY .014 180CM 180CM was inserted via Fem Art (right). 11:22:51 Activated Clotting Time Drawn 11:22:52 ACT (Normal Range 90-180) = 141 A BALLOON, 3.5 X 12MM NC EUPHORA 12MM was inserted over WIRE, RUNTHROUGH NS FLOPPY .014 180CM 1 80CM 11:23:58 via the RCA Prox. 5000 units HEPARIN given in lab by Wilbert Araujo, NOEMY in Left Antecubital via Peripheral IV. Or dered by Milagro, 11:24:01 Da. A BALLOON, 3.5 X 12MM NC EUPHORA 12MM over a WIRE, RUNTHROUGH NS FLOPPY .014 180CM 180CM in the RCA 11:24:59 Prox was inflated using a 30 SARA INDEFLATOR at 18 asra for 20 sec. A BALLOON, 3.5 X 12MM NC EUPHORA 12MM over a WIRE, RUNTHROUGH NS FLOPPY .014 180CM 180CM in the RCA 11:25:18 Prox was inflated using a 30 SARA INDEFLATOR at 16 sara for 10 sec. 11:25:31 HR=85 bpm, ASLA=244/67 mmhg, SpO2=99.0 %, Resp=0 B/min, EtCO2=1 mmHg, Apnea=40 Seconds 11:25:36 HR=63 bpm, SpO2=99 %, Resp=0 B/min, EtCO2=1 mmHg, Apnea=44 Seconds A BALLOON, 3.5 X 12MM NC EUPHORA 12MM over a WIRE, RUNTHROUGH NS FLOPPY .014 180CM 180CM in the RCA 11:25:51 Prox was inflated using a 30 SARA INDEFLATOR at 18 saar for 20 sec. A BALLOON, 3.5 X 12MM NC EUPHORA 12MM over a WIRE, RUNTHROUGH NS FLOPPY .014 180CM 180CM in the RCA 11:26:15 Prox was inflated using a 30 SARA INDEFLATOR at 18 sara for 15 sec. A BALLOON, 3.5 X 12MM NC EUPHORA 12MM over a WIRE, RUNTHROUGH NS FLOPPY .014 180CM 180CM in the RCA 11:27:43 Prox was inflated using a 30 SARA INDEFLATOR at 16 sara for 10 sec. 11:28:45 Balloon Removed. A BALLOON, 4.0 X 20MM NC EUPHORA 20MM was inserted over WIRE, RUNTHROUGH NS FLOPPY .014 180CM 1 80CM 11:29:35 via the RCA Prox. A BALLOON, 4.0 X 20MM NC EUPHORA 20MM over a WIRE, RUNTHROUGH NS FLOPPY .014 180CM 180CM in the RCA 11:30:17 Prox was inflated using a 30 SARA INDEFLATOR at 13 sara for 20 sec. HR=52 bpm, EMYW=084/58 mmhg, SpO2=99.0 %, Resp=18 B/min, EtCO2=31 mmHg, Apnea=4 Seconds, Pain=0 , 11:30:34 Mckinley=2 A BALLOON, 4.0 X 20MM NC EUPHORA 20MM over a WIRE, RUNTHROUGH NS FLOPPY .014 180CM 180CM in the RCA 11:30:52 Prox was inflated using a 30 SARA INDEFLATOR at 15 sara for 20 sec. A BALLOON, 4.0 X 20MM NC EUPHORA 20MM over a WIRE, RUNTHROUGH NS FLOPPY .014 180CM 180CM in the RCA 11:31:47 Prox was inflated using a 30 SARA INDEFLATOR at 18 sara for 30 sec. 11:33:35 Balloon Removed. 11:33:51 Wire removed 11:35:31 HR=59 bpm, XVVQ=631/74 mmhg, SpO2=99.0 %, Resp=16 B/min, EtCO2=28 mmHg, Apnea=5 Seconds After removing the current catheter a EBU 3.5 Z2 GUIDE CATHETER FR 6 was advanced over a WIRE, 3MMJ .035 11:37:42 180CM 180CM. OMNIPAQUE, 350 MG, 100ML 100ML was used for injections. 11:37:59 The LCA was injected and visualized at various angles. OMNIPAQUE, 350 MG, 100ML 100ML used . 11:38:24 A WIRE, RUNTHROUGH NS FLOPPY .014 180CM 180CM was inserted via Fem Art (right). 11:40:09 1 mg VERSED given in lab by Wilbert Araujo, NOEMY in Left Antecubital via Peripheral IV. Order ed by Da Humphrey. 11:40:26 25 mcg FENTANYL given in lab by Wilbert Araujo RN in Left Antecubital via Peripheral IV. O rdered by Da Humphrey. A BALLOON, 2.5 X 10MM EUPHORA 10MM over a WIRE, RUNTHROUGH NS FLOPPY .014 180CM 180CM in the LA D Mid 11:40:39 was inflated using a 30 SARA INDEFLATOR at 10 sara for 20 sec. 11:41:11 HR=62 bpm, CLYV=224/74 mmhg, LbM2=598.0 %, Resp=10 B/min, EtCO2=35 mmHg, Apnea=16 Seconds 11:41:27 Balloon Removed. A STENT, 2.75 14 RESOLUTE INTEGRITY RX 2.75 14 was advanced through a EBU 3.5 Z2 GUIDE CATHETER FR 6 over 11:42:11 a WIRE, RUNTHROUGH NS FLOPPY .014 180CM 180CM. A STENT, 2.75 14 RESOLUTE INTEGRITY RX 2.75 14 was deployed using a 30 SARA INDEFLATOR at 12 sara ospheres 11:42:27 for 10 seconds in the LAD Mid. 11:42:45 Activated Clotting Time Drawn 11:42:45 ACT (Normal Range 90-180) = 246 11:43:25 Delivery device removed A BALLOON, 3.0 X 12MM NC EUPHORA 12MM was inserted over WIRE, RUNTHROUGH NS FLOPPY .014 180CM 1 80CM 11:44:40 via the LAD Mid. A BALLOON, 3.0 X 12MM NC EUPHORA 12MM over a WIRE, RUNTHROUGH NS FLOPPY .014 180CM 180CM in the LAD 11:44:41 Mid was inflated using a 30 SARA INDEFLATOR at 16 sara for 20 sec. 11:45:20 Balloon Removed. 11:45:30 Wire removed 11:45:31 Catheter was removed 11:46:26 HR=58 bpm, CBWG=605/71 mmhg, SpO2=98.0 %, Resp=19 B/min, EtCO2=13 mmHg, Apnea=4 Seconds 11:46:49 PERCLOSE, PRO GLIDE CLOSER DEVICE FR 6 placement in the Fem Art (right) 11:48:58 Case End Assessment: Final Case, HR=52 BPM, Rhythm=SB, MUIO=089/63 mmhg, Chest Pain=0 Right Pulses: Stoney Ped=1, Femoral=1 11:50:13 Left Pulses: Stoney Ped=1, Femoral=1 Neurological: State=Alert, Ox3, SKY Respiration: Resp=14 B/min, SpO2=97 % HR=51 bpm, YMLQ=780/63 mmhg, SpO2=99.0 %, Resp=14 B/min, EtCO2=16 mmHg, Apnea=12 Seconds, Pain= 0, 11:50:45 Mckinley=2 11:51:03 Sterile dressing applied to site 11:51:04 No case complications noted. 11:51:06 Cine recording checked. 11:51:09 Bedside Report will be given. 11:51:14 A Left Heart Cath was performed. 11:52:15 NIBP STAT measurement started. 11:52:49 HR=69 bpm, LQRP=113/72 mmhg, SpO2=98.0 %, Resp=8 B/min, EtCO2=34 mmHg, Apnea=0 Seconds 11:53:53 180 mg BRILLINTA given in lab by Wilbert Araujo, RN in Per mouth via Oral. Ordered by Da Keane. 11:58:29 Patient moved to BED 11:58:39 Clinical correlaton risk stratification. 11:58:54 [place] [facility] [place] - Contrast Media Used In Study Contrast Total Opened (mL) Total Used (mL) Total Wasted (mL) Omnipaque 130 130 0 End Study - Maximum Contrast Load Max Contrast Load (mL) 533.8 End Study - Radiation Exposure Fluoro Time (minutes) 11.6 End Study - Sheaths Sheaths Pulled By Sheath Hold Time (min) Da Humphrey 5 End Study - Patient Disposition Complications Transferred To Interventional Outcome No Critical Care Bed successful
--- NOTE | 2016-06-06 12:50 | MA ---
cc: SHUKRI VASQUES DATE: 06/06/2016 1941 PROCEDURES PERFORMED 1. Left heart catheterization. 2. Selective right and left coronary angiography. 3. Left ventriculogram. 4. Right common femoral artery angiography, selective. 5. Successful POBA to ISR of right coronary artery. 6. Successful PCI/SHRUTI to mid-LAD. INDICATIONS [id number] LA/chest pain. DESCRIPTION OF PROCEDURE Consent signed. The patient was brought into the cardiac cardiac cath lab manager in fasting state. The right groin was prepped and draped in sterile fashion. Using 1% lidocaine for local anesthesia and a micropuncture kit a 5-Trinidadian sheath was inserted into the right common femoral artery. Selective right common femoral artery angiography was performed to confirm position of the sheath. Then selective right and left coronary angiography was performed with a JR-4 and JL- 4 diagnostic catheter. Angiography was taken in multiple views. Then angled pigtail over a wire was introduced into the left ventricle followed by pressure recordings, left ventriculogram and pullback. The patient had a significant 90 % in-stent restenosis of the right coronary artery inside the stent placed 10 years ago, also a 90% lesion in the mid LAD. Both lesions amenable to PCI. The 5-Trinidadian sheath was upgraded to a 6-Trinidadian sheath. Weight based IV heparin was given for anticoagulation. The right coronary artery was engaged with a JR-4 guide and wired with a RunThrough wire and anchored in the distal PDA. Followed by POBA to the ISR with a noncompliant 3.5 12 balloon and 4x20 balloon inflated to high atmospheres. Final angiographic views revealed 10% residual stenosis and GERI III flow. Then we proceeded to fix the mid-LAD. The LM was engaged with a EBU 3.5 6Fr guide. The vessel was wired with a RunThrough wire which was anchored distally. The lesion was predilated with a 2.5x12mm balloon followed by insertion and deployment of a 2.75 x 14mm drug-eluting stent. The stent was post-dilated with a noncompliant 3x12mm balloon to high atmospheres. Final angiographic views revealed good stent apposition and expansion with GERI III flow. The patient tolerated the procedure well without complications. Estimated blood loss was less than 40 cc. Total contrast used was 110 ccs. The right groin access site was closed with Perclose device. The patient was loaded with Brilinta after the procedure. RESULTS LEFT VENTRICLE The left ventricular pressure was 169/2 with LVEDP of 15. The aortic pressure was 157/38 with a mean of 83. Left ventriculogram revealed global hypokinesia with an estimated ejection fraction of 40%. There was no gradient upon pullback from the left ventricle to aorta. ANGIOGRAPHY 1. Left main. Nonobstructive coronary artery disease, GERI III flow. 2. LAD. There is minimal luminal irregularities throughout. There is a significant 90% lesion on the mid segment. The vessel has GERI III flow. Diagonals are patent with nonobstructive coronary artery disease. 3. The left circumflex artery has minimal luminal irregularities throughout. It has a 20% lesion proximally, is giving off three OM branches which are patent with nonobstructive coronary artery disease. 4. The right coronary artery is a dominant vessel giving off the PDA, has a stent in its proximal segment, there is in stent restenosis. These lesions are focal lesions and there is GERI II flow. CONCLUSION 1. Successful PCI/SHRUTI to mid-LAD. 2. Successful JOE to the ISR of the right coronary artery stent and LV dysfunction. RECOMMENDATIONS The patient will need aggressive medical management for secondary prevention of coronary artery disease. She will need dual antiplatelet agents for at least a year per ACC/AHA Guidelines (aspirin and Brilinta) as well as beta-kaylan, DAWIT inhibitor, statins and therapeutic lifestyle changes. After post cath care and bedrest, the patient should be encouraged to ambulate. She will be followed by Dr. De Leon upon discharged. MD RAHUL Joseph/SAHRA /12:13 PM /12:29 PM VALERIANO
[2016-06-06] MEDS: amLODIPine BESYLATE 5 MG TAB PO SCH (18:35)
--- NOTE | 2016-06-06 20:04 | EC ---
Study Study Date:06/06/2016 STUDY CONCLUSIONS SUMMARY - Left ventricle: The cavity size was normal. Wall thickness was normal. Systolic function was mildly reduced. The estimated ejection fraction was 45%. Wall motion was normal; there were no regional wall motion abnormalities. - Mitral valve: Mildly calcified annulus. Mild regurgitation. If LV function is below 40, please consider prescribing an ACEI or ARB or document rationale for non-use. PROCEDURE DATA STUDY STATUS: Elective. Procedure: Transthoracic echocardiography. Image quality was good. Scanning was performed from the parasternal, apical, and subcostal acoustic windows. Study completion: The patient tolerated the procedure well. Transthoracic echocardiography. M-mode, complete 2D, complete spectral Doppler, and color Doppler. Patient status: Inpatient. CARDIAC ANATOMY LEFT VENTRICLE: The cavity size was normal. Wall thickness was normal. Systolic function was mildly reduced. The estimated ejection fraction was 45%. Wall motion was normal; there were no regional wall motion abnormalities. AORTIC VALVE: Trileaflet; mildly thickened leaflets. Doppler: Transvalvular velocity was within the normal range. There was no stenosis. No regurgitation. AORTA: Aortic root: The aortic root was normal in size. MITRAL VALVE: Mildly calcified annulus. Doppler: Transvalvular velocity was within the normal range. There was no evidence for stenosis. Mild regurgitation. LEFT ATRIUM: The atrium was normal in size. RIGHT VENTRICLE: The cavity size was normal. Wall thickness was normal. PULMONIC VALVE: Doppler: Transvalvular velocity was within the normal range. There was no evidence for stenosis. No regurgitation. TRICUSPID VALVE: Structurally normal valve. Doppler: Transvalvular velocity was within the normal range. Trace regurgitation. PULMONARY ARTERY: The main pulmonary artery was normal-sized. Systolic pressure was within the normal range. RIGHT ATRIUM: The atrium was normal in size. PERICARDIUM: There was no pericardial effusion. SYSTEMIC VEINS: Inferior vena cava: The vessel was normal in size. BASIC MEASUREMENTS ADULT Normal Left ventricle LV internal dimension, ED, chordal level, 45 mm 43-52 PLAX LV internal dimension, ES, chordal level, 35.9 mm 23-38 PLAX Fractional shortening, chordal level, PLAX *20 % >29 LV posterior wall thickness, ED 7.82 mm IVS/LVPW ratio, ED 1.26 <1.3 Ventricular septum Septal thickness, ED 9.87 mm Left atrium Anterior-posterior dimension 30 mm Right ventricle RV internal dimension, ED, PLAX *18.9 mm 19-38 DOPPLER MEASUREMENTS ADULT Normal Main pulmonary artery Pressure, S 22 mm Hg =30 Mitral valve Peak E-wave velocity 57.3 cm/s Peak A-wave velocity 102 cm/s Peak E/A ratio 0.6 Tricuspid valve Regurgitant peak velocity 205 cm/s Peak RV-RA gradient, S 17 mm Hg Maximal regurgitant velocity 205 cm/s Systemic veins Estimated CVP 5 mm Hg Right ventricle RV pressure, S 22 mm Hg <30 LEGEND: Mean values are shown as u=mean value. Asterisk (*) pinto values outside specified normal range. Prepared and signed by Bull Lazar [id number]
[2016-06-06] MEDS: TICAGRELOR 90 MG TAB PO SCH (20:54)
[2016-06-06] MEDS ORDERED: ATORVASTATIN 20 MG TAB PO SCH (21:00)
--- NOTE | 2016-06-06 22:56 | EKG ---
Date Performed: 06/05/2016 Time Performed: 19:53:58 PTAGE: 75 years EKG: Sinus rhythm WITH SINUS ARRHYTHMIA ST DEVIATION AND MODERATE T-WAVE ABNORMALITY, CONSIDER ANTEROLATERAL ISCHEMIA ABNORMAL ECG PREVIOUS TRACING : 06/05/2016 10.53 Compared to prior tracing no significant change DOCTOR: Zhao Perez Interpretating Date/Time 06/06/2016 22:54:52
[2016-06-07] VITALS (8 sets, daily range): BP systolic 117–182; BP diastolic 53–70; PULSE 55–79; RESP 20–22; TEMP 97.3–98.4; O2SAT 94–96
[2016-06-07] MEDS: CHLORHEXIDINE GLUCONATE 2 % 1 PACK (2 CLOTHS)(taper/protocol) TOPICAL SCH (04:00)
[2016-06-07 06:04] LABS: HEMATOCRIT 40.2 % (35.0-46.0); MEAN CELL VOLUME 90.8 FL (80.0-100.0); MEAN CORPUSCULAR HEMOGLOBIN 29.7 PG (27.0-34.0); MEAN CORPUSCULAR HGB CONC 32.7 % (32.0-36.0); PLATELET COUNT 131 TH/MM3 (150-450); RED BLOOD COUNT 4.42 MIL/MM3 (4.00-5.30); RED CELL DISTRIBUTION WIDTH 13.5 % (11.6-17.2); REVIEW FLAG FINAL; WHITE BLOOD COUNT 5.7 TH/MM3 (4.0-11.0)
[2016-06-07 06:27] LABS: APTT (PATIENT) 26.8 SEC (24.3-30.1)
[2016-06-07 06:28] LABS: BICARBONATE 27.9 MEQ/L (21.0-32.0); POTASSIUM 4.1 MEQ/L (3.5-5.1)
--- NOTE | 2016-06-07 07:30 | HHI.PR ---
Subjective Remarks Patient resting comfortably in bed. Denies any CP, back pain, abdominal pain or SOB. Objective Vital Signs Date Time Temp Pulse Resp B/P Pulse Ox O2 Delivery O2 Flow Rate FiO2 06/07/16 06:00 55 06/07/16 04:00 64 06/07/16 04:00 98.1 64 22 117/53 96 06/07/16 02:00 58 06/07/16 02:00 58 06/07/16 00:00 79 06/07/16 00:00 98.4 79 20 119/65 96 06/07/16 00:00 79 06/06/16 22:00 58 06/06/16 22:00 58 06/06/16 21:17 96 21 06/06/16 20:00 67 06/06/16 20:00 98.1 67 23 125/57 96 06/06/16 20:00 67 06/06/16 16:00 98.3 68 19 116/59 96 06/06/16 08:00 97.6 63 21 181/70 96 I/O 06/06/16 06/06/16 06/06/16 06/07/16 06/07/16 06/07/16 07:00 15:00 23:00 07:00 15:00 23:00 Intake Total 35 ml 450 ml 883 ml 100 ml Output Total 700 ml 300 ml 400 ml 450 ml Balance -665 ml 150 ml 483 ml -350 ml Intake Oral 200 ml 250 ml 100 ml IV Total 35 ml 250 ml 633 ml 0 ml Output Urine Total 700 ml 300 ml 400 ml 450 ml # Bowel Movements 0 0 Result Diagram: 06/07/16 0544 06/07/16 0544 Imaging Last 72 hours Impressions Abdomen Ultrasound 06/05/16 0000 Signed Impressions: Service Date/Time: Sunday, June 05, 2016 11:06 - CONCLUSION: Mild hepatic steatosis. Willie Jacobson MD Chest X-Ray 06/04/16 2653 Signed Impressions: Service Date/Time: Saturday, June 04, 2016 23:29 - CONCLUSION: No evidence of acute cardiopulmonary disease. Rudi Bah MD Procedures 06/06 Heart Cath Objective Remarks GENERAL: Alert and cooperative SKIN: Warm and dry. Dressing on right groin HEAD: Normocephalic. EYES: No scleral icterus. No injection or drainage. NECK: Supple, trachea midline. No JVD or lymphadenopathy. CARDIOVASCULAR: Regular rate and rhythm without murmurs, gallops, or rubs. RESPIRATORY: Breath sounds equal bilaterally. No accessory muscle use. GASTROINTESTINAL: Abdomen soft, non-tender, nondistended. MUSCULOSKELETAL: No cyanosis, or edema. BACK: Nontender without obvious deformity. No CVA tenderness. Medications and IVs Current Medications Medications (Trade) Dose Ordered Sig/Minda Route Start Time Stop Time Status Last Admin (NS Flush) 2 ml UNSCH PRN IV FLUSH 06/05/16 01:30 (NS Flush) 2 ml BID IV FLUSH 06/05/16 09:00 06/06/16 20:53 (Tylenol) 650 mg Q4H PRN PO 06/05/16 01:30 (Narcan Inj) 0.4 mg UNSCH PRN IV 06/05/16 01:30 (Aspirin Chew) 162 mg DAILY CHEW 06/05/16 09:00 06/06/16 09:07 Patient Own Medication PT OWN MED: Dextromethorphan-Guai... DAILY PRN PO 06/05/16 01:30 Hold (Prinivil) 2.5 mg BID PO 06/05/16 09:00 06/06/16 20:54 (Theragran) 1 tab DAILY PO 06/05/16 09:00 06/06/16 09:06 (Slo-Niacin) 500 mg DAILY PO 06/05/16 09:00 06/06/16 09:05 (Pravachol) 10 mg DAILY PO 06/05/16 09:00 06/06/16 09:06 (Pill Splitter) 1 ea UNSCH PRN OTHER 06/05/16 01:45 (Ativan) 0.5 mg Q4H PRN PO 06/05/16 21:30 06/06/16 09:06 Miscellaneous Information Patient in critical care unit? Ass... Q361D .XX 06/05/16 18:15 (Chlorhexidine 2% Cloth) 3 pack DAILY@04 TOPICAL 06/06/16 04:00 06/10/16 04:01 06/07/16 04:00 (Chlorhexidine 2% Cloth) 3 pack UNSCH PRN TOPICAL 06/05/16 18:15 06/10/16 18:10 (Lipitor) 20 mg HS PO 06/06/16 21:00 06/06/16 20:54 (Aspirin Chew) 81 mg DAILY PO 06/07/16 09:00 (Brilinta) 90 mg BID PO 06/06/16 21:00 06/06/16 20:54 (Atropine Inj) 0.5 mg UNSCH PRN IV 06/06/16 12:00 (Zofran Inj) 4 mg Q4H PRN IV 06/06/16 12:00 06/06/16 13:16 (Norvasc) 5 mg BID PO 06/06/16 18:30 06/06/16 18:35 Assessment and Plan Problem List: (1) ACS (acute coronary syndrome) Status: Acute Plan: Positive troponin. Heart cath done yesterday. Dressing on right groin. No hematoma present. PCI to mid LAD and ballon angioplasty to ISR of RCA. Will be discharged on ASA and Brilinta (2) Hypertension Status: Acute Plan: Well controlled. On lang inhibitor will monitor (3) Hyperlipidemia Status: Acute Plan: Lipitor ordered. Assessment and Plan Assessment and plan discussed with Dr. Zarate Discussed Condition With Nursing Discharge Planning Plan to discharge home with [facility] once cleared per cardiology. Alicia Cabezas June 07, 2016 07:30
--- NOTE | 2016-06-07 08:48 | PD.CARD.PN ---
Subjective Subjective Remarks no complaints chest pain free ambulating without difficulty Objective Medications Current Medications Medications (Trade) Dose Ordered Sig/Minda Route Start Time Stop Time Status Last Admin (NS Flush) 2 ml UNSCH PRN IV FLUSH 06/05/16 01:30 (NS Flush) 2 ml BID IV FLUSH 06/05/16 09:00 06/06/16 20:53 (Tylenol) 650 mg Q4H PRN PO 06/05/16 01:30 (Narcan Inj) 0.4 mg UNSCH PRN IV 06/05/16 01:30 (Aspirin Chew) 162 mg DAILY CHEW 06/05/16 09:00 06/06/16 09:07 Patient Own Medication PT OWN MED: Dextromethorphan-Guai... DAILY PRN PO 06/05/16 01:30 Hold (Prinivil) 2.5 mg BID PO 06/05/16 09:00 06/06/16 20:54 (Theragran) 1 tab DAILY PO 06/05/16 09:00 06/06/16 09:06 (Slo-Niacin) 500 mg DAILY PO 06/05/16 09:00 06/06/16 09:05 (Pill Splitter) 1 ea UNSCH PRN OTHER 06/05/16 01:45 (Ativan) 0.5 mg Q4H PRN PO 06/05/16 21:30 06/06/16 09:06 Miscellaneous Information Patient in critical care unit? Ass... Q361D .XX 06/05/16 18:15 (Chlorhexidine 2% Cloth) 3 pack DAILY@04 TOPICAL 06/06/16 04:00 06/10/16 04:01 06/07/16 04:00 (Chlorhexidine 2% Cloth) 3 pack UNSCH PRN TOPICAL 06/05/16 18:15 06/10/16 18:10 (Lipitor) 20 mg HS PO 06/06/16 21:00 06/06/16 20:54 (Aspirin Chew) 81 mg DAILY PO 06/07/16 09:00 (Brilinta) 90 mg BID PO 06/06/16 21:00 06/06/16 20:54 (Atropine Inj) 0.5 mg UNSCH PRN IV 06/06/16 12:00 (Zofran Inj) 4 mg Q4H PRN IV 06/06/16 12:00 06/06/16 13:16 (Norvasc) 5 mg BID PO 06/06/16 18:30 06/06/16 18:35 Vital Signs / I&O Vital Signs Date Time Temp Pulse Resp B/P Pulse Ox O2 Delivery O2 Flow Rate FiO2 06/07/16 06:00 55 06/07/16 04:00 64 06/07/16 04:00 98.1 64 22 117/53 96 06/07/16 02:00 58 06/07/16 02:00 58 06/07/16 00:00 79 06/07/16 00:00 98.4 79 20 119/65 96 06/07/16 00:00 79 06/06/16 22:00 58 06/06/16 22:00 58 06/06/16 21:17 96 21 06/06/16 20:00 67 06/06/16 20:00 98.1 67 23 125/57 96 06/06/16 20:00 67 06/06/16 16:00 98.3 68 19 116/59 96 I/O 06/06/16 06/06/16 06/06/16 06/07/16 06/07/16 06/07/16 07:00 15:00 23:00 07:00 15:00 23:00 Intake Total 35 ml 450 ml 883 ml 100 ml Output Total 700 ml 300 ml 400 ml 450 ml Balance -665 ml 150 ml 483 ml -350 ml Intake Oral 200 ml 250 ml 100 ml IV Total 35 ml 250 ml 633 ml 0 ml Output Urine Total 700 ml 300 ml 400 ml 450 ml # Bowel Movements 0 0 Physical Exam GENERAL: Well-nourished, well-developed patient. SKIN: Warm and dry. HEAD: Normocephalic. EYES: No scleral icterus. No injection or drainage. NECK: Supple, trachea midline. No JVD or lymphadenopathy. CARDIOVASCULAR: Regular rate and rhythm without murmurs, gallops, or rubs. RESPIRATORY: Breath sounds equal bilaterally. No accessory muscle use. GASTROINTESTINAL: Abdomen soft, non-tender, nondistended. EXTREMITIES: No cyanosis, or edema. NEUROLOGICAL: Awake, alert, and oriented x 3. Non-focal. Laboratory Laboratory Tests Test 06/07/16 05:44 White Blood Count 5.7 TH/MM3 Red Blood Count 4.42 MIL/MM3 Hemoglobin 13.1 GM/DL Hematocrit 40.2 % Mean Corpuscular Volume 90.8 FL Mean Corpuscular Hemoglobin 29.7 PG Mean Corpuscular Hemoglobin 32.7 % Concent Red Cell Distribution Width 13.5 % Platelet Count 131 TH/MM3 Mean Platelet Volume 9.3 FL Activated Partial 26.8 SEC Thromboplast Time Sodium Level 141 MEQ/L Potassium Level 4.1 MEQ/L Chloride Level 106 MEQ/L Carbon Dioxide Level 27.9 MEQ/L Anion Gap 7 MEQ/L Blood Urea Nitrogen 18 MG/DL Creatinine 0.95 MG/DL Estimat Glomerular Filtration 58 ML/MIN Rate Random Glucose 115 MG/DL Calcium Level 8.8 MG/DL Phosphorus Level 3.6 MG/DL Magnesium Level 2.0 MG/DL Imaging Last Impressions Abdomen Ultrasound 06/05/16 0000 Signed Impressions: Service Date/Time: Sunday, June 05, 2016 11:06 - CONCLUSION: Mild hepatic steatosis. Willie Jacobson MD Chest X-Ray 06/04/16 2313 Signed Impressions: Service Date/Time: Saturday, June 04, 2016 23:29 - CONCLUSION: No evidence of acute cardiopulmonary disease. Rudi Bah MD Assessment and Plan Problem List: (1) CAD (coronary artery disease) Assessment and Plan: s/p PCI/SHRUTI to LAD s/p POBA to ISAR of RCA stent Doing well Echo 45% Cont ASA and Brilinta Cont BB, ACEi and statin Encourage ambulation and incentive spirometry Stable from CV standpoint for d/c F/U with dr. De Leon upon discharge (2) Hyperlipidemia (3) ACS (acute coronary syndrome) (4) Hypertension Da Humphrey MD June 07, 2016 08:48
[2016-06-07] MEDS ORDERED: ASPIRIN 81 MG CHEW TAB PO SCH (09:00)
[2016-06-07] MEDS: NIACIN 500 MG EXTENDED RELEASE TAB PO SCH (09:06)
[2016-06-07] MEDS: LISINOPRIL 5 MG TAB PO SCH (09:06)
[2016-06-07] MEDS: ASPIRIN 81 MG CHEW TAB CHEW SCH (09:07)
[2016-06-07] MEDS: MULTIVITAMIN TAB PO SCH (09:07)
[2016-06-07] MEDS: TICAGRELOR 90 MG TAB PO SCH (09:07)
[2016-06-07] MEDS: amLODIPine BESYLATE 5 MG TAB PO SCH (09:07)
[2016-06-07] MEDS: SODIUM CHLORIDE 0.9% FLUSH 10 ML FLUSH IV FLUSH SCH (09:08)
--- NOTE | 2016-06-07 11:08 | HHI.FF ---
Face to Face Verification Diagnosis: (1) CAD (coronary artery disease) (2) ACS (acute coronary syndrome) (3) Hyperlipidemia (4) Epigastric abdominal pain (5) Hypertension Home Health Nursing Order: Medical education Signs/symptoms of disease process Medication education-adverse effect Nursing assessment with vital signs I have seen patient Theresa Pearl on 06/07/16. My clinical findings support the need for the requested home health care services because: Deconditioned w/ increased weakness Med compliance is questionable I certify that my clinical findings support that this patient is homebound because: Post-op weakness Need for psychosocial assistance Alicia Cabezas June 07, 2016 11:08
[2016-06-07] MEDS ORDERED: ATOR20TA15 PO (11:17)
[2016-06-07] MEDS ORDERED: BRIL90TA PO (11:17)
[2016-06-07] MEDS ORDERED: AMLO5 PO (11:17)
[2016-06-07] MEDS ORDERED: LISI-519 PO (11:17)
--- NOTE | 2016-06-07 11:26 | HHI.DS ---
Discharge Summary Admission Date Jun 05, 2016 at 01:02 Admitting Diagnosis ACS (1) ACS (acute coronary syndrome) Procedures 06/06 Heart Cath Brief History 75-year-old female presents to the emergency department by private transportation the care of family for evaluation of back pain with referred right upper extremity pain. Patient reports that 2 days ago she had bilateral upper extremity aching that resolved spontaneously. Patient reports she's had previous myocardial infarction with stent placement. Patient states when pain began this evening at 9 PM it was 9/10 intensity mid scapular radiating into the right upper extremity and patient became concerned that she may have been having angina or heart attack. Patient states that she felt like she had some mild indigestion and did have some belching. He should states that she did drink Coca-Cola which provided no relief and did take 2 regular strength aspirin prior to arrival to the emergency prior. Patient reports that her nitroglycerin was no longer effective so she used a friend's nitroglycerin times one which resolved her pain to 0/10 in intensity. Patient denies any associated sweats or nausea vomiting or shortness of breath. Patient denies abdominal pain. Patient reports that she is status post cholecystectomy. Patient has hypertension and dyslipidemia denies diabetes but does admit to ongoing tobacco use one pack per day as well as family history of heart attack with father who was a smoker. Patient rates her discomfort at this time 0/10 intensity. CBC/BMP: 06/07/16 0544 06/07/16 0544 Significant Findings Laboratory Tests Test 06/04/16 06/05/16 06/05/16 06/05/16 23:14 05:25 07:40 10:50 Hematocrit 46.2 % (35.0-46.0) Blood Urea Nitrogen 19 MG/DL (7-18) Creatinine 1.11 MG/DL (0.50-1.00) Estimat Glomerular Filtration 48 ML/MIN (>89) Rate Activated Partial 65.5 SEC 45.3 SEC Thromboplast Time (24.3-30.1) (24.3-30.1) Troponin I 0.55 NG/ML 0.69 NG/ML (0.02-0.05) (0.02-0.05) Test 06/05/16 06/06/16 06/07/16 16:10 05:24 05:44 Activated Partial 40.7 SEC 41.1 SEC Thromboplast Time (24.3-30.1) (24.3-30.1) Platelet Count 132 TH/MM3 131 TH/MM3 (150-450) (150-450) Lymphocytes (%) (Auto) 50.8 % (9.0-44.0) Blood Urea Nitrogen 19 MG/DL (7-18) Estimat Glomerular Filtration 68 ML/MIN (>89) 58 ML/MIN (>89) Rate Random Glucose 119 MG/DL 115 MG/DL (74-106) (74-106) Albumin 3.3 GM/DL (3.4-5.0) PE at Discharge GENERAL: Alert and cooperative SKIN: Warm and dry. Dressing on right groin HEAD: Normocephalic. EYES: No scleral icterus. No injection or drainage. NECK: Supple, trachea midline. No JVD or lymphadenopathy. CARDIOVASCULAR: Regular rate and rhythm without murmurs, gallops, or rubs. RESPIRATORY: Breath sounds equal bilaterally. No accessory muscle use. GASTROINTESTINAL: Abdomen soft, non-tender, nondistended. MUSCULOSKELETAL: No cyanosis, or edema. BACK: Nontender without obvious deformity. No CVA tenderness. Hospital Course 75-year-old female presents to the emergency department by private transportation the care of family for evaluation of back pain with referred right upper extremity pain. Patient reports that 2 days ago she had bilateral upper extremity aching that resolved spontaneously. Patient reports she's had previous myocardial infarction with stent placement. Patient states when pain began this evening at 9 PM it was 9/10 intensity mid scapular radiating into the right upper extremity and patient became concerned that she may have been having angina or heart attack. Patient states that she felt like she had some mild indigestion and did have some belching. Patient was found to have positive troponins and had a heart Cath on 06/06 through right groin. PCI to MID LAD and POBA to ISR of RCA. Patient is discharged pain free on aspirin and Brilinta. She was instructed to follow up with primary care provider and help desk team leader. Discharged with [facility]. Pt Condition on Discharge: Good Discharge Disposition: Disch w/ Home Health Serv Discharge Instructions DIET: Follow Instructions for: Heart Healthy Diet Activities you can perform: Regular-No Restrictions Follow up Referrals: Appointment for Follow Up with Anastasia De Leon MD PCP Follow-up - 1 Week June 14Monday at 10:00 New Medications: Amlodipine (Norvasc) 5 Mg Tab 5 MG PO BID Blood Pressure Management #60 TAB Atorvastatin (Atorvastatin) 20 Mg Tab 20 MG PO HS Cholesterol Management #30 TAB Lisinopril (Lisinopril) 5 Mg Tab 2.5 MG PO BID BPM #60 TAB Ticagrelor (Brilinta) 90 Mg Tab 90 MG PO BID Blood Clot Prevention #60 TAB Continued Medications: Aspirin (Aspirin) 81 Mg Chew 162 MG CHEW DAILY Ref 0 TAB Fish Oil-Cholecalciferol (Fish Oil + D3) 1,200-1,000 Mg-Unit Cap 1 CAP PO DAILY Nutritional Supplement #30 Ref 0 CAP Multiple Vitamins W/ Minerals (Centrum Silver) 1 Tab 1 TAB PO DAILY Nutritional Supplement Ref 0 TAB Discontinued Medications: Dextromethorphan-Guaifenesin (Mucinex DM) 30-600 Mg Tab 1 TAB PO DAILY PRN CHEST CONGESTION AND/OR COUGH Ref 0 TAB Lisinopril (Lisinopril) 2.5 Mg Tab 2.5 MG PO BID #30 Ref 0 TAB Niacin (Niacin) 500 Mg Tab 500 MG PO DAILY Cholesterol Management #30 Ref 0 TAB Simvastatin (Simvastatin) 5 Mg Tab 5 MG PO DAILY Cholesterol Management #30 Ref 0 TAB Alicia Cabezas June 07, 2016 11:26
== END 2016-06-07 13:00 | disposition home health service (06) | DRG 251 ==
LOC: NEPC 22:51 → OBSVTOIN 06-05 01:02 → NEDA 06-05 01:02 → NEDH 06-05 05:23 → HIMN 06-05 12:45
PROVIDERS: ADMIT Family Medicine; ATTEND Family Medicine
PROC: 02703ZZ Dilation of Coronary Artery, One Artery, Percutaneous Approach (ICD-10-PCS; principal; 2016-06-05)
PROC: 02703ZZ Dilation of Coronary Artery, One Artery, Percutaneous Approach (ICD-10-PCS; 2016-06-05)
PROC: 4A023N7 Measurement of Cardiac Sampling and Pressure, Left Heart, Percutaneous Approach (ICD-10-PCS; 2016-06-05)
PROC: B2111ZZ Fluoroscopy of Multiple Coronary Arteries using Low Osmolar Contrast (ICD-10-PCS; 2016-06-05)
PROC: B2151ZZ Fluoroscopy of Left Heart using Low Osmolar Contrast (ICD-10-PCS; 2016-06-05)
PROC: B41F1ZZ Fluoroscopy of Right Lower Extremity Arteries using Low Osmolar Contrast (ICD-10-PCS; 2016-06-05)
DX: I21.4 Non-ST elevation (NSTEMI) myocardial infarction (principal); T82.858A Stenosis of other vascular prosthetic devices, implants and grafts, initial encounter; J44.9 Chronic obstructive pulmonary disease, unspecified; I10 Essential (primary) hypertension; E78.5 Hyperlipidemia, unspecified; R10.13 Epigastric pain; I25.10 Atherosclerotic heart disease of native coronary artery without angina pectoris; I25.2 Old myocardial infarction; F17.210 Nicotine dependence, cigarettes, uncomplicated; Y71.1 Therapeutic (nonsurgical) and rehabilitative cardiovascular devices associated with adverse incidents; Z23 Encounter for immunization; Z82.49 Family history of ischemic heart disease and other diseases of the circulatory system; Z86.73 Personal history of transient ischemic attack (TIA), and cerebral infarction without residual deficits; Z88.1 Allergy status to other antibiotic agents; Z90.49 Acquired absence of other specified parts of digestive tract
CPT/HCPCS: 71010; 76700; 80048; 80053; 82550; 83735; 84100; 84484; 85002; 85025; 85027; 85610; 85730; 87641; 90471; 90732; 92921; 92928; 93005; 93306; 93458; C1725; C1760; C1769; C1874; C1887; C1893; G0009; G0269; J1644; J2250; J2405; J3010; J7030; Q9967

== ENCOUNTER 2017-02-25 12:49 | Emergency (ER) | payer MEDICARE | END 2017-02-25 15:24 | disposition home or self-care (01) | LOC: PHEFT 12:49 | DX: S61.012A Laceration without foreign body of left thumb without damage to nail, initial encounter (principal); S81.812A Laceration without foreign body, left lower leg, initial encounter; E78.00 Pure hypercholesterolemia, unspecified; J44.9 Chronic obstructive pulmonary disease, unspecified; I25.10 Atherosclerotic heart disease of native coronary artery without angina pectoris; I10 Essential (primary) hypertension; F17.210 Nicotine dependence, cigarettes, uncomplicated; W18.02XA Striking against glass with subsequent fall, initial encounter; Z79.02 Long term (current) use of antithrombotics/antiplatelets; Z86.73 Personal history of transient ischemic attack (TIA), and cerebral infarction without residual deficits; Z95.5 Presence of coronary angioplasty implant and graft | CPT/HCPCS: 12002; 73140; 99283-25 ==

== ENCOUNTER 2017-12-01 21:57 | Inpatient (IN) ==
--- NOTE | 2017-12-01 22:26 | ED ---
HPI General Chief complaint: Neuro Symptoms/Deficit Stated complaint: R arm numbness/ headache Time Seen by Provider: 12/01/17 22:20 Source: patient Mode of arrival: ambulatory Limitations: no limitations History of Present Illness HPI narrative: Patient states that approximately at 7:30 p.m., the patient was smoking a cigarette holding it on her right hand. She is right-hand dominant. When suddenly she dropped her cigarette and was unable to pick it back up she was very clumsy with that right arm. She is stepped on it to put it off and walked back in the house and started to have dinner and noticed that she was having trouble cutting her pork chop, because of the same clumsiness of her right arm. Now she presents to room 9 at 2207, where she was seen by me immediately. Patient is speaking clearly and providing all information herself. Patient states that she is on both Plavix and aspirin and she took both today. pcp is kofi cardio is katja per patient does not have a current neuro Related Data Home Medications Medication Instructions Recorded Confirmed amlodipine 5 mg PO DAILY 12/01/17 12/01/17 aspirin [Aspir-Low] 81 mg PO DAILY 12/01/17 12/01/17 atorvastatin 80 mg PO DAILY 12/01/17 12/01/17 cholecalciferol (vitamin D3) 1,000 unit PO DAILY 12/01/17 12/01/17 [Vitamin D3] clopidogrel 75 mg PO DAILY 12/01/17 12/01/17 lisinopril 2.5 mg PO DAILY 12/01/17 12/01/17 ucbpbhydgmym-cnlu-xikvg acid 1 tab PO DAILY 12/01/17 12/01/17 [Centrum Complete] omega 3-mys-qwy-fish oil [Fish Oil] 12/01/17 Allergies Allergy/AdvReac Type Severity Reaction Status Date / Time erythromycin base Allergy Severe FINGERS Verified 12/01/17 22:16 MAHENDRA Review of Systems ROS: all other systems reviewed are negative PMFSH History History Provided By: Patient Medical History Medical History History of myocardial infarction (Acute) History of stroke (Acute) Surgical History Surgical History History of cholecystectomy (Acute) Family History Family History Other Family history non-contributory Social History Social History Substance History: No History of Abuse Second Hand Smoke Exposure: No Smoking Status: Current every day smoker Tobacco Type: Cigarettes How Often Do You Have a Drink Containing Alcohol: Monthly or less Hx Recent Travel: No Recent Travel [facility] within the Last 8 Weeks: No Recent Out of Country Travel within the Last 8 Weeks: No Exam Narrative Exam Narrative: GENERAL: Elderly female smells of heavy tobacco in no apparent distress. SKIN: Warm and dry. HEAD: Atraumatic. Normocephalic. EYES: Pupils equal and round. No scleral icterus. No injection or drainage. ENT: No nasal bleeding or discharge. Mucous membranes pink and moist. NECK: Trachea midline. No JVD. CARDIOVASCULAR: Regular rate and rhythm. no rubs or gallops RESPIRATORY: No accessory muscle use. Clear to auscultation. Breath sounds equal bilaterally. GASTROINTESTINAL: Abdomen soft, non-tender, nondistended. No rebound or guarding MUSCULOSKELETAL: Extremities without clubbing, cyanosis, or edema. No obvious deformities. NEUROLOGICAL: Awake and alert. No obvious cranial nerve deficits. Motor grossly within normal limits. Five out of 5 muscle strength in the arms and legs. Normal speech. PSYCHIATRIC: Appropriate mood and affect; insight and judgment normal. Course Initial Documented Vital Signs Pulse Rate 89 12/01/17 22:19 Respiratory Rate 16 12/01/17 22:19 Blood Pressure 132/61 12/01/17 22:19 Pulse Oximetry 95 12/01/17 22:19 Last Documented Vital Signs Temperature 98.6 F 12/03/17 00:00 Pulse Rate 71 12/03/17 00:00 Respiratory Rate 19 12/03/17 00:00 Blood Pressure 121/57 L 12/03/17 00:00 Pulse Oximetry 93 L 12/03/17 00:00 NIH Stroke Scale NIHSS Time Completed NIHSS Time Completed: 22:13 NIH Stroke Scale Level of Consciousness: 0-Alert Orientation Questions: 0-Answers both correct Responds to Commands: 0-Both tasks correct Gaze Eye Movement: 0-Horizontal movement WNL Visual Patel: 0-No visual field defect Facial Movement: 0-Normal Motor Functions Arm LEFT: 0-No drift Motor Functions Arm RIGHT: 0-No drift Motor Functions Leg LEFT: 0-No drift Motor Functions Leg RIGHT: 0-No drift Limb Ataxia: 0-No ataxia Sensory Loss: 0-No sensory loss Best Language: 0-Normal Articulation: 0-Normal Extinction or Inattention Sensory: 0-Absent Total: 0 Medical Decision Making MDM Narrative Medical Screen Exam Complete: Yes Emergency Medical Condition: Yes Medical Records Medical records reviewed: Yes I reviewed the patient's medical records. Lab Data Result diagrams: 12/01/17 23:30 12/01/17 23:30 Lab Results 12/01/17 12/01/17 12/01/17 Range/Units 23:16 23:30 23:30 CBC w Diff Auto diff final WBC 9.1 (4.0-11.0) th/mm3 RBC 4.59 (4.00-5.30) mil/mm3 Hgb 14.0 (11.6-15.3) gm/dL Hct 41.4 (35.0-46.0) % MCV 90.2 (80.0-100.0) fL MCH 30.4 (27.0-34.0) pg MCHC 33.7 (32.0-36.0) % RDW 12.9 (11.6-17.2) % Plt Count 183 (150-450) th/mm3 MPV 9.4 (7.0-11.0) fL Neut % (Auto) 48.2 (16.0-70.0) % Lymph % (Auto) 42.9 (9.0-44.0) % Angelina % (Auto) 5.6 (0.0-8.0) % Eos % (Auto) 2.3 (0.0-4.0) % Baso % (Auto) 1.0 (0.0-2.0) % Neut # (Auto) 4.4 (1.8-7.7) th/mm3 Lymph # (Auto) 3.9 (1.0-4.8) th/mm3 Angelina # (Auto) 0.5 (0.0-0.9) th/mm3 Eos # (Auto) 0.2 (0.0-0.4) th/mm3 Baso # (Auto) 0.1 (0.0-0.2) th/mm3 WBC Differential . Differential Comment . ESR (0-30) mm/hr PT 9.9 (9.8-11.6) sec INR 1.0 Ratio APTT 21.2 L (24.3-30.1) sec Sodium (136-145) meq/L Potassium (3.5-5.1) meq/L Chloride (98-107) meq/L Carbon Dioxide (21.0-32.0) meq/L Anion Gap (5-15) meq/L BUN (7-18) mg/dL Creatinine (0.50-1.00) mg/dL Estimated GFR (>89) mL/min POC Glucose 111 H (68-110) mg/dl Random Glucose (74-106) mg/dL Calcium (8.5-10.1) mg/dL Total Creatine Kinase (26-192) U/L Troponin I (0.02-0.05) ng/mL TSH (0.358-3.740) uIU/mL 12/01/17 12/02/17 12/02/17 Range/Units 23:30 09:01 16:20 CBC w Diff WBC (4.0-11.0) th/mm3 RBC (4.00-5.30) mil/mm3 Hgb (11.6-15.3) gm/dL Hct (35.0-46.0) % MCV (80.0-100.0) fL MCH (27.0-34.0) pg MCHC (32.0-36.0) % RDW (11.6-17.2) % Plt Count (150-450) th/mm3 MPV (7.0-11.0) fL Neut % (Auto) (16.0-70.0) % Lymph % (Auto) (9.0-44.0) % Angelina % (Auto) (0.0-8.0) % Eos % (Auto) (0.0-4.0) % Baso % (Auto) (0.0-2.0) % Neut # (Auto) (1.8-7.7) th/mm3 Lymph # (Auto) (1.0-4.8) th/mm3 Angelina # (Auto) (0.0-0.9) th/mm3 Eos # (Auto) (0.0-0.4) th/mm3 Baso # (Auto) (0.0-0.2) th/mm3 WBC Differential Differential Comment ESR 15 (0-30) mm/hr PT (9.8-11.6) sec INR Ratio APTT (24.3-30.1) sec Sodium 139 (136-145) meq/L Potassium 3.9 (3.5-5.1) meq/L Chloride 103 (98-107) meq/L Carbon Dioxide 28.8 (21.0-32.0) meq/L Anion Gap 7 (5-15) meq/L BUN 15 (7-18) mg/dL Creatinine 1.10 H (0.50-1.00) mg/dL Estimated GFR 48 L (>89) mL/min POC Glucose 112 H (68-110) mg/dl Random Glucose 94 (74-106) mg/dL Calcium 8.3 L (8.5-10.1) mg/dL Total Creatine Kinase 57 (26-192) U/L Troponin I Less than 0.02 L (0.02-0.05) ng/mL TSH (0.358-3.740) uIU/mL 12/02/17 Range/Units 16:20 CBC w Diff WBC (4.0-11.0) th/mm3 RBC (4.00-5.30) mil/mm3 Hgb (11.6-15.3) gm/dL Hct (35.0-46.0) % MCV (80.0-100.0) fL MCH (27.0-34.0) pg MCHC (32.0-36.0) % RDW (11.6-17.2) % Plt Count (150-450) th/mm3 MPV (7.0-11.0) fL Neut % (Auto) (16.0-70.0) % Lymph % (Auto) (9.0-44.0) % Angelina % (Auto) (0.0-8.0) % Eos % (Auto) (0.0-4.0) % Baso % (Auto) (0.0-2.0) % Neut # (Auto) (1.8-7.7) th/mm3 Lymph # (Auto) (1.0-4.8) th/mm3 Angelina # (Auto) (0.0-0.9) th/mm3 Eos # (Auto) (0.0-0.4) th/mm3 Baso # (Auto) (0.0-0.2) th/mm3 WBC Differential Differential Comment ESR (0-30) mm/hr PT (9.8-11.6) sec INR Ratio APTT (24.3-30.1) sec Sodium (136-145) meq/L Potassium (3.5-5.1) meq/L Chloride (98-107) meq/L Carbon Dioxide (21.0-32.0) meq/L Anion Gap (5-15) meq/L BUN (7-18) mg/dL Creatinine (0.50-1.00) mg/dL Estimated GFR (>89) mL/min POC Glucose (68-110) mg/dl Random Glucose (74-106) mg/dL Calcium (8.5-10.1) mg/dL Total Creatine Kinase (26-192) U/L Troponin I (0.02-0.05) ng/mL TSH 1.400 (0.358-3.740) uIU/mL Imaging Data Radiologist's impression: Head CT 12/01/17 22:20 CONCLUSION: 1. Chronic changes with old lacunar type infarcts in the caudate heads bilaterally extending cephalad into the dalal radiata/centrum semiovale. 2. Stable left frontal para midline 1 cm meningioma. 3. Nothing acute. . Chest X-Ray 12/01/17 22:21 CONCLUSION: 1. Hyperinflation with no acute cardiac pulmonary process. 2. Azygos fissure in the medial right upper lung, an anatomic variant. Neck MRA 12/02/17 00:00 CONCLUSION: 1. Suboptimal study with probable moderate stenosis of the proximal right internal carotid artery and mild stenosis proximal left internal carotid artery. Both vertebral arteries are patent within the neck. Percent stenosis is calculated using the diameter of the stenotic region over the diameter of the normal distal internal carotid artery Head MRI 12/02/17 15:39 CONCLUSION: 1. No acute infarct, acute hemorrhage, midline shift or extra-axial fluid collections. 2. Mild periventricular white matter small vessel ischemic changes bilaterally. 3. Old lacunar infarcts involving the caudate heads bilaterally. 4. Enhancing left frontal parasagittal calcified extra-axial mass measuring 17 x 14 mm consistent with calcified meningioma. Head MRA 12/02/17 15:39 CONCLUSION: 1. 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 ECG Data EKG Prior to Arrival: No Attestation: I personally reviewed and interpreted this ECG as follows: Prior ECG tracings: not available for review Interpretation: Normal sinus rhythm, 84 bpm, intervals, LVH pattern noted, p mitrale, inf lateral st depressions (II, III, avf, v4-v6) Discharge Plan Discharge Disposition Patient Disposition: 30 Still Patient Discharge Condition Condition: Stable Discharge Details Diagnosis: Transient cerebral ischemia Physicians Team ED Provider: Silver Mcfarland Primary Care Provider: Alcides Zarate Attending Provider: Alcides Zarate Other Providers: Catalino Vazquez Status ED Status: Left Department Discharge Information Discharge Date/Time: 12/02/17 00:20
--- NOTE | 2017-12-01 22:42 | XR ---
EXAM DATE: 12/01/2017 10:37 PM EDT AGE/SEX: 77 years / Female INDICATIONS: Chest discomfort, right arm numbness, weakness for 2 hours CLINICAL DATA: This is the patient's initial encounter. Patient reports that signs and symptoms have been present for 1 day and indicates a pain score of 0/10. MEDICAL/SURGICAL HISTORY: . Coronary artery disease . Coronary artery stent COMPARISON: [facility] [place], CHEST SINGLE AP, 06/04/2016. . FINDINGS: A single AP view of the chest demonstrates the lungs to be symmetrically hyper aerated with no acute infiltrate. Azygos fissure in the medial aspect of the right upper lung. Heart size is normal. Osseou s structures are intact CONCLUSION: 1. Hyperinflation with no acute cardiac pulmonary process. 2. Azygos fissure in the medial right upper lung, an anatomic variant. Electronically signed by: Nirmal Dubois MD 12/01/2017 10:41 PM EDT
--- NOTE | 2017-12-01 22:57 | CT ---
EXAM DATE: 12/01/2017 10:50 PM EDT AGE/SEX: 77 years / Female INDICATIONS: Right arm numbness and a headache. CLINICAL DATA: This is the patient's initial encounter. Patient reports that signs and symptoms have been present for 1 day and indicates a pain score of 5/10. MEDICAL/SURGICAL HISTORY: . Myocardial infarction. Stroke. Cholecystectomy. RADIATION DOSE: 53.20 CTDI (mGy) COMPARISON: [facility], CT BRAIN W/O CONTRAST, 06/08/2010. . TECHNIQUE: CT of the head without contrast. Using automated exposure control and adjustment of the mA and/or kV according to patient size, radiation dose was kept as low as reasonably achievable to ob tain optimal diagnostic quality images. DICOM format image data is available electronically for revi ew and comparison. FINDINGS: Cerebrum: The ventricles are normal for age. There is an old lacunar type infarct in the superior as pect of the left caudate head extending up into the anterior limb of the internal capsule. Additional lacunar type infarct in the superior aspect of the right caudate head is well extending slightly int o the right dalal radiata. No extraaxial fluid collections are seen. Posterior Fossa: The cerebellum and brainstem are intact. The 4th ventricle is midline. The cerebe llopontine angle is unremarkable. Extracranial: The visualized portion of the orbits is intact. A 1 cm calcified meningioma left para midline frontal region is unchanged. Skull: The calvaria is intact. No evidence of skull fracture. CONCLUSION: 1. Chronic changes with old lacunar type infarcts in the caudate heads bilaterally extending cephala d into the dalal radiata/centrum semiovale. 2. Stable left frontal para midline 1 cm meningioma. 3. Nothing acute. . Electronically signed by: iNrmal Dubois MD 12/01/2017 10:55 PM EDT
[2017-12-01 23:37] LABS: Baso # (Auto) 0.1 th/mm3 (0.0-0.2); Eos # (Auto) 0.2 th/mm3 (0.0-0.4); Eos % (Auto) 2.3 % (0.0-4.0); Hematocrit 41.4 % (35.0-46.0); Lymph # (Auto) 3.9 th/mm3 (1.0-4.8); Lymph % (Auto) 42.9 % (9.0-44.0); Mean Corpuscular HGB Conc 33.7 % (32.0-36.0); Mean Corpuscular Hemoglobin 30.4 pg (27.0-34.0); Mean Corpuscular Volume 90.2 fL (80.0-100.0); Mean Platelet Volume 9.4 fL (7.0-11.0); Mono # (Auto) 0.5 th/mm3 (0.0-0.9); Mono % (Auto) 5.6 % (0.0-8.0); Neut # (Auto) 4.4 th/mm3 (1.8-7.7); Neut % (Auto) 48.2 % (16.0-70.0); Platelet Count 183 th/mm3 (150-450); Red Blood Count 4.59 mil/mm3 (4.00-5.30); Red Cell Distribution Width 12.9 % (11.6-17.2); White Blood Count 9.1 th/mm3 (4.0-11.0)
[2017-12-01 23:45] LABS: Chloride 103 meq/L (98-107); Potassium 3.9 meq/L (3.5-5.1); Sodium 139 meq/L (136-145)
[2017-12-01 23:47] LABS: Calcium 8.3 mg/dL (8.5-10.1)
[2017-12-01 23:48] LABS: Anion Gap 7 meq/L (5-15); Blood Urea Nitrogen 15 mg/dL (7-18); Carbon Dioxide 28.8 meq/L (21.0-32.0); Glucose,Random 94 mg/dL (74-106)
[2017-12-01 23:50] LABS: Activated Partial Thrombo Time 21.2 sec (24.3-30.1); Prothrombin Time 9.9 sec (9.8-11.6)
[2017-12-01 23:51] LABS: Glomerular Filtration Rate 48 mL/min (>89)
[2017-12-02 00:15] LABS: Creatine Kinase 57 U/L (26-192)
--- NOTE | 2017-12-02 10:58 | P.HPFP ---
History of Present Illness Service: Family Practice Primary Care Physician: Alcides Zarate DO Chief Complaint: Now has no deficits and is asking about discharge home. History of Present Illness: She presented with sudden onset of problems moving her hand which resolved by the time she presented to the ED. She has a past H/O CVA. - Diagnosis (1) TIA (transient ischemic attack) Inpatient Certification: I certify that the inpatient services were ordered in accordance with Medicare regulations governing the order. This includes certification that hospital inpatient services are reasonable and necessary and in the case of services not specified as inpatient-only under 42 CFR 419.22(n), that they are appropriately provided as inpatient services in accordance to with the 2-midnight benchmark under 43 CFR 412.3(e) Plans for Post Hospital Care: Home Review of Systems Constitutional: Denies anorexia, Denies body ache(s), Denies chills, Denies daytime sleepiness, Denies excessive sweating, Denies fatigue, Denies fever(s), Denies headache(s), Denies increased appetite, Denies lack of energy, Denies malaise, Denies night sweats, Denies weakness, Denies weight gain, Denies weight loss, Denies other Eyes: Denies blind spots, Denies blurry vision, Denies bulging eyes, Denies change in vision, Denies double vision, Denies discharge, Denies dry eyes, Denies floaters, Denies irritation, Denies itchy eyes, Denies loss of vision, Denies pain, Denies requires corrective lenses, Denies sensitivity to light, Denies other Ears, Nose, Mouth, and Throat: Denies abnormal hearing, Denies bleeding gums, Denies bad breath, Denies change in voice, Denies dental pain, Denies difficulty swallowing, Denies dizziness, Denies dry mouth, Denies ear discharge , Denies ear pain, Denies facial pain, Denies headache(s), Denies hearing loss, Denies hoarseness, Denies lip swelling, Denies nosebleed, Denies mouth lesions, Denies mouth pain, Denies nasal congestion, Denies nasal discharge, Denies nasal obstruction, Denies nasal trauma, Denies neck lump, Denies neck pain, Denies nose pain, Denies pain with swallowing, Denies poor balance, Denies post nasal drip, Denies ringing in the ears, Denies sinus pain, Denies sinus pressure , Denies sore throat, Denies throat swelling, Denies tongue swelling, Denies other Cardiovascular: Denies chest pain, Denies chest pain at rest, Denies chest pain with activity, Denies excessive sweating, Denies fainting, Denies fast heart rate, Denies foot swelling, Denies generalized swelling, Denies irregular heart rhythm, Denies leg pain with activity, Denies leg sores, Denies leg swelling, Denies lightheadedness, Denies radiating jaw, neck or arm pain, Denies rapid, pounding, or irregular heartbeat, Denies shortness of breath, Denies shortness of breath with activity, Denies shortness of breath when lying down, Denies shortness of breath causing sudden awakening, Denies slow heart rate, Denies other Respiratory: Denies change in phlegm color, Denies chest congestion, Denies cough, Denies coughing up blood, Denies excessive phlegm production, Denies pain on inspiration, Denies pain with cough, Denies shortness of breath, Denies shortness of breath with activity, Denies snoring, Denies stridor, Denies wheezing, Denies other Gastrointestinal: Denies abdominal pain, Denies belching, Denies black, tarry stools, Denies bloating, Denies bright, red blood in stools, Denies change in bowel habits, Denies constant urge to pass stool, Denies change in stools, Denies coffee ground vomit, Denies constipation, Denies cramping, Denies difficulty swallowing, Denies excessive passing of gas, Denies feeling full early, Denies heartburn, Denies incontinent of stools, Denies loose stools, Denies nausea, Denies pain with swallowing, Denies vomiting, Denies vomiting blood, Denies other Musculoskeletal: Reports muscle weakness, Reports numbness Neurologic: Reports numbness, Reports tingling/numbness/burning sensations Psychiatric: Denies abnormal sleep pattern, Denies anxiety, Denies behavioral changes, Denies change in appetite, Denies change in sex drive, Denies confusion , Denies depression, Denies difficulty concentrating, Denies hearing things others do not hear, Denies hopelessness, Denies irritability, Denies lack of enjoyment, Denies memory loss, Denies mood swings, Denies panic attacks, Denies paranoia, Denies seeing things others do not see, Denies sensing things others do not sense, Denies tactile hallucinations, Denies thoughts of hurting/killing others, Denies thoughts of hurting/killing yourself, Denies other Endocrine: Denies cold intolerance, Denies excessive sweating, Denies flushing, Denies heat intolerance, Denies increased hunger, Denies increased thirst, Denies increased urination, Denies rapid, pounding, or irregular heartbeat, Denies other PMFSH - History History Provided By: Patient - Medical / Surgical Hx Neg / Unobtainable Medical Problems Denied: Yes - Medical History Medical History: Medical History (Last Reviewed 12/02/17 @ 10:53 by Gunnar Ellington) History of myocardial infarction History of stroke - Surgical History Surgical History: Surgical History (Last Reviewed 12/02/17 @ 10:53 by Gunnar Ellington) History of cholecystectomy - Social History I have reviewed the patient's Social History: Yes - Tobacco History Second Hand Smoke Exposure: No Tobacco Use In Past 30 Days: Yes Smoking Status: Current every day smoker Tobacco Type: Cigarettes - Alcohol History How Often Do You Have a Drink Containing Alcohol: Monthly or less - Substance Use History Substance History: No History of Abuse - Travel History History of Recent Travel: No Recent Travel in the [place] Within the Last 8 Weeks: No Recent Travel Out of the Country Within the Last 8 Weeks: No - Immunization History Tetanus Immunization: Unsure Hx Influenza Vaccine This Season: No Medications and Allergies Active Medications: Active Medications Sodium Chloride (Ns Flush) 2 ml IV.FLUSH PRN PRN PRN Reason: FLUSH AFTER USING IV ACCESS Allergies Allergy/AdvReac Type Severity Reaction Status Date / Time erythromycin base Allergy Severe FINGERS Verified 12/01/17 22:16 SWELL Home Medications Medication Instructions Recorded Confirmed Type amlodipine 5 mg PO DAILY 12/01/17 12/01/17 History aspirin [Aspir-Low] 81 mg PO DAILY 12/01/17 12/01/17 History atorvastatin 80 mg PO DAILY 12/01/17 12/01/17 History cholecalciferol (vitamin D3) 1,000 unit PO DAILY 12/01/17 12/01/17 History [Vitamin D3] clopidogrel 75 mg PO DAILY 12/01/17 12/01/17 History lisinopril 2.5 mg PO DAILY 12/01/17 12/01/17 History xnvlajxcpmbx-hrga-[id number] acid 1 tab PO DAILY 12/01/17 12/01/17 History [Centrum Complete] omega 5-[id number]-ftp-fish oil [Fish Oil] 12/01/17 History Exam Vital signs: Vital Signs 12/01/17 22:19 12/01/17 22:30 12/02/17 00:05 Temperature Pulse Rate 89 Respiratory Rate 16 Blood Pressure 132/61 Pulse Oximetry 95 99 99 12/02/17 00:13 12/02/17 04:00 12/02/17 08:00 Temperature 98.4 F 97.9 F Pulse Rate 89 86 60 Respiratory Rate 20 14 19 Blood Pressure 128/66 126/71 148/95 H Pulse Oximetry 95 95 Intake & Output 12/01/17 12/02/17 12/02/17 18:59 06:59 18:59 Weight 76.6 kg - Constitutional no acute distress - Routine HEENT Exam Head: Present: normocephalic, atraumatic Eye: Present: PERRL, normal accommodation - Routine Neck Exam Present: supple, full ROM - Routine Respiratory Exam Present: CTA bilaterally - Routine Cardiovascular Exam Present: RRR, S1, S2, murmur - Routine Abdominal Exam Present: soft, normoactive bowel sounds - Routine Extremities Exam Present: full ROM - Routine Skin Exam Present: intact - Routine Neurological Exam Present: alert, oriented X3 Results - Labs Result diagrams: 12/01/17 23:30 12/01/17 23:30 Abnormal lab results 12/01/17 12/01/17 12/01/17 Range/Units 23:16 23:30 23:30 APTT 21.2 L (24.3-30.1) sec Creatinine 1.10 H (0.50-1.00) mg/dL Estimated GFR 48 L (>89) mL/min POC Glucose 111 H (68-110) mg/dl Calcium 8.3 L (8.5-10.1) mg/dL Troponin I Less than 0.02 L (0.02-0.05) ng/mL 12/02/17 Range/Units 09:01 APTT (24.3-30.1) sec Creatinine (0.50-1.00) mg/dL Estimated GFR (>89) mL/min POC Glucose 112 H (68-110) mg/dl Calcium (8.5-10.1) mg/dL Troponin I (0.02-0.05) ng/mL Short CBC 12/01/17 Range/Units 23:30 WBC 9.1 (4.0-11.0) th/mm3 Hgb 14.0 (11.6-15.3) gm/dL Hct 41.4 (35.0-46.0) % Plt Count 183 (150-450) th/mm3 BMP 12/01/17 23:30 Sodium 139 Potassium 3.9 Chloride 103 Carbon Dioxide 28.8 BUN 15 Creatinine 1.10 H Calcium 8.3 L Cardiac Enzymes 12/01/17 Range/Units 23:30 Total Creatine Kinase 57 (26-192) U/L Troponin I Less than 0.02 L (0.02-0.05) ng/mL - Imaging Impressions Head CT 12/01/17 22:20 CONCLUSION: 1. Chronic changes with old lacunar type infarcts in the caudate heads bilaterally extending cephalad into the dalal radiata/centrum semiovale. 2. Stable left frontal para midline 1 cm meningioma. 3. Nothing acute. . Chest X-Ray 12/01/17 22:21 CONCLUSION: 1. Hyperinflation with no acute cardiac pulmonary process. 2. Azygos fissure in the medial right upper lung, an anatomic variant. Caprini VTE Risk Assessment Caprini VTE Risk Assessment: No/Low Risk (score <= 1) Caprini Risk Assessment Model: Point Value = 1 Point Value = 2 Point Value = 3 Point Value = 5 Age 41-60 Minor surgery BMI > 25 kg/m2 Swollen legs Varicose veins or History of unexplained or recurrent spontaneous Oral contraceptives or hormone replacement Sepsis (< 1 month) Serious lung disease, including pneumonia (< 1 month) Abnormal pulmonary function Acute myocardial infarction Congestive heart failure (< 1 month) History of inflammatory bowel disease Medical patient at bed rest Age 61-74 Arthroscopic surgery Major open surgery (> 45 min) Laparoscopic surgery (> 45 min) Malignancy Confined to bed (> 72 hours) Immobilizing plaster cast Central venous access Age >= 75 History of VTE Family history of VTE Factor V Leiden Prothrombin [id number] Lupus anticoagulant Anticardiolipin antibodies Elevated serum homocysteine Heparin-induced thrombocytopenia Other congenital or acquired thrombophilia Stroke (< 1 month) Elective arthroplasty Hip, pelvis, or leg fracture Acute spinal cord injury (< 1 month) Prophylaxis Regimen: Total Risk Factor Score Risk Level Prophylaxis Regimen 0-1 Low Early ambulation 2 Moderate Order ONE of the following: *Sequential Compression Device (SCD) *Heparin 5000 units SQ BID 3-4 Higher Order ONE of the following medications: *Heparin 5000 units SQ TID *Enoxaparin/Lovenox 40 mg SQ daily (WT < 150 kg, CrCl > 30 mL/min) *Enoxaparin/Lovenox 30 mg SQ daily (WT < 150 kg, CrCl > 10-29 mL/min) *Enoxaparin/Lovenox 30 mg SQ BID (WT < 150 kg, CrCl > 30 mL/min) AND/OR *Sequential Compression Device (SCD) 5 or more Highest Order ONE of the following medications: *Heparin 5000 units SQ TID (Preferred with Epidurals) *Enoxaparin/Lovenox 40 mg SQ daily (WT < 150 kg, CrCl > 30 mL/min) *Enoxaparin/Lovenox 30 mg SQ daily (WT < 150 kg, CrCl > 10-29 mL/min) *Enoxaparin/Lovenox 30 mg SQ BID (WT < 150 kg, CrCl > 30 mL/min) AND *Sequential Compression Device (SCD) Assessment and Plan - Assessment (1) TIA (transient ischemic attack) Code(s): G45.9 - Transient cerebral ischemic attack, unspecified Status: Acute - Assessment and Plan TIA with H/O CVA. Patient anxious to go home but has agreed to stay and see Neuro. Discussed Condition With: Patient and nurse Discharge Planning: Home
[2017-12-02 17:30] LABS: Thyroid Stimulating Hormone 1.4 uIU/mL (0.358-3.740)
--- NOTE | 2017-12-02 17:52 | MR ---
EXAM DATE: 12/02/2017 5:47 PM EDT AGE/SEX: 77 years / Female INDICATIONS: . Right side numbness and tingling. CLINICAL DATA: This is the patient's initial encounter. Patient reports that signs and symptoms have been present for 1 day and indicates a pain score of 0/10. MEDICAL/SURGICAL HISTORY: Carcinoma, skin cancer. Hypertension. Cerebrovascular disease. CAD Cholecystectomy. COMPARISON: [facility], CT HEAD W/O CONTRAST, 12/01/2017. [facility], CT BRAIN W/O CONTRAST, 06/08/2010. . TECHNIQUE: 3D [id number] MRA was performed. Source images, multiplanar STS MIP, and 3D volum e MIP reconstructions were reviewed. FINDINGS: There is excellent visualization of the major intracranial arteries out to the second-order branch ve ssels. 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 There is no significant stenosis, occlusion or aneurysm involving the bilateral middle or anterior cerebral arteries. The uppermost portions of the internal carotid arteries are patent. The left posterior cerebral artery is patent. CONCLUSION: 1. Severe stenosis of the right proximal posterior cerebral artery and poor filling of the distal br anches of this vessel. Electronically signed by: Ramirez Ochoa MD 12/02/2017 5:51 PM EDT
[2017-12-02] MEDS ORDERED: Gadobutrol PF 10 MMOL/10 ML Vial (for RAD) IV.SIG ONE (18:00)
--- NOTE | 2017-12-02 18:10 | MR ---
EXAM DATE: 12/02/2017 6:02 PM EDT AGE/SEX: 77 years / Female INDICATIONS: . Right side numbness and tingling. CLINICAL DATA: This is the patient's initial encounter. Patient reports that signs and symptoms have been present for 1 day and indicates a pain score of 0/10. MEDICAL/SURGICAL HISTORY: Carcinoma, skin cancer. Hypertension. Cerebrovascular disease. CAD Cholecystectomy. COMPARISON: [facility], CT HEAD W/O CONTRAST, 12/01/2017. . TECHNIQUE: Multiplanar, multisequence examination of the brain was performed without and with 10cc ml Gadavist (gadobutrol) contrast as a single exam dose. FINDINGS: Cerebrum: The ventricles are normal for age. No evidence of midline shift, mass lesion, hemorrhage or acute infarction. No extraaxial fluid collections are seen. Old lacunar infarcts are noted invol ving the caudate heads bilaterally.The pituitary gland and suprasellar cistern are normal in configur ation. White Matter: Mild periventricular white matter small vessel ischemic changes are noted bilaterally. Posterior Fossa: The cerebellum and brainstem are intact. The 4th ventricle is midline. The cerebel lopontine angle is unremarkable. The cerebellar tonsils are normal in position. Diffusion Imaging: No focal areas of restricted diffusion are seen. No evidence of acute infarction . Extracranial: The visualized portions of the orbits and paranasal sinuses are unremarkable. Post Contrast: There is evidence of an enhancing left frontal parasagittal extra-axial mass measurin g 17 x 14 mm consistent with calcified meningioma. CONCLUSION: 1. No acute infarct, acute hemorrhage, midline shift or extra-axial fluid collections. 2. Mild periventricular white matter small vessel ischemic changes bilaterally. 3. Old lacunar infarcts involving the caudate heads bilaterally. 4. Enhancing left frontal parasagittal calcified extra-axial mass measuring 17 x 14 mm consistent wi th calcified meningioma. Electronically signed by: Ramirez Ochoa MD 12/02/2017 6:09 PM EDT
--- NOTE | 2017-12-02 18:15 | MR ---
EXAM DATE: 12/02/2017 6:05 PM EDT AGE/SEX: 77 years / Female INDICATIONS: . Right side numbness and tingling. CLINICAL DATA: This is the patient's initial encounter. Patient reports that signs and symptoms have been present for 1 day and indicates a pain score of 0/10. MEDICAL/SURGICAL HISTORY: Carcinoma, skin cancer. Hypertension. Cerebrovascular disease. CAD Cholecystectomy. COMPARISON: No prior exams available for comparison. TECHNIQUE: 10cc ml Gadavist (gadobutrol) contrast infused MRA (single exam dose) of the extracrania l circulation was performed using a neurovascular coil. Postprocessing was performed, including rota ting sub-volume maximum intensity projections of each carotid artery, rotating full-volume maximum in tensity projections of both carotid arteries, sagittal and coronal sliding thin-slab reformations of each carotid artery, and left oblique sliding thin-slab reformation through the aortic arch to includ e the origin of the arch branch vessels. FINDINGS: Aortic Arch : There is mild plaque formation in the proximal left common carotid artery and subclavi an artery without evidence for hemodynamically Right Carotid : The common carotid artery is intact. There is some signal dropout around the bifurca tion but there appears to be a moderate stenosis of the right carotid bifurcation and proximal right internal carotid artery. Left Carotid : The common carotid artery is intact. Mild plaque in the proximal left internal caroti d artery without hemodynamically significant stenosis. Vertebrals : The vertebral arteries have a symmetric diameter. No stenotic lesions are seen. CONCLUSION: 1. Suboptimal study with probable moderate stenosis of the proximal right internal carotid artery an d mild stenosis proximal left internal carotid artery. Both vertebral arteries are patent within the neck. Percent stenosis is calculated using the diameter of the stenotic region over the diameter of the nor mal distal internal carotid artery Electronically signed by: Arun Fields MD 12/02/2017 6:14 PM EDT
[2017-12-02 21:04] VITALS: O2SAT 93
--- NOTE | 2017-12-02 21:22 | MB ---
cc: Catalino Vu MD DATE: 12/02/2017 HISTORY OF PRESENT ILLNESS: A 77-year-old right-handed woman with hypercholesterolemia, 2 MIs, cardiac stent. She sees Dr. De Leon. After one of her MIs, she was on Coumadin for a period, but now on Plavix. Her last stent was placed about a year and a half ago. She had a stroke about 5 years ago, some numbness and tingling in the left leg, which has persisted. Yesterday, she lit a cigarette and it dropped out of her right hand. She tried to pick it up could not pick it up, then she went to eat and could not cut and use a fork with the right hand and dropped the knife. No involvement of the face. No chest pain or palpitation. She has chronic headache, so she did have a headache, but that is not unusual for her. She did not have any involvement of the right leg. She has not been seen by Neurology here before, as far as I can tell. She had an echocardiogram done in June of last year showed an EF of 45%. She had a CT scan done yesterday, which showed bilateral head of the caudate, infarcts old, and left atrial size was normal in the past. She says she sees Dr. De Leon, although I do not see any consult from her. I do see one from 09/2016 from cardiology who was covering for her, Dr. Da Fields; he had her on Brilinta at that time. REVIEW OF SYSTEMS: She denies any hypertension, diabetes, atrial fibrillation, renal, hepatic, pulmonary disease, thyroid disease, lupus, ulcer. She has had some skin cancers only. No history of seizure. SOCIAL HISTORY: She is still a smoker; I have asked her to quit. Not a drinker. Lives with her daughter. FAMILY HISTORY: Positive for cancer in her daughter. Negative for seizure or stroke. PHYSICAL EXAMINATION: VITAL SIGNS: She has been in sinus rhythm on tele. Afebrile 56, 97, 119/46 to 132/61. NECK: There were no carotid bruits. HEART: Regular rhythm with a 1/6 systolic ejection murmur. NEUROLOGIC: Pupils are equal. She has a full. Extraocular movements intact without nystagmus. Face is symmetric with normal sensation. Tongue was midline. There is no drift. Normal strength in upper and lower extremities bilaterally including the right hand. Passive movements are symmetric and normal in the right hand. DTRs trace throughout. Toes downgoing bilaterally. Pinprick is intact throughout upper and lower extremities bilaterally including the right hand. She is not ataxic on [id number]. LABORATORY DATA: CBC is normal. Basic metabolic profile showed a creatinine of 1.1, otherwise essentially normal. Calcium 8.3. CPK, troponin was negative. Coags normal in the past. LFTs were normal year ago. Troponin was 0.69 in 06/2016. LDL was 103 at that time. TSH was normal. HOME MEDICATIONS: 1. She was on 81 of aspirin. 2. Amlodipine. 3. Fish oil. 4. Atorvastatin. 5. Plavix 75. 5. Lisinopril. 6. Multivitamin. 7. Vitamin D. PAST MEDICAL HISTORY: CT scan of the brain as noted bilateral basal ganglionic infarcts old; in 2006, an old admission indicated for stroke. She saw Dr. Muse. She notes she had a stent, had left thigh discomfort, numbness. MRI showed acute left caudate and internal capsule infarct, a calcified meningioma in the left frontal region, old left cerebellar infarct. Carotid ultrasound was negative. She continued her on Plavix. An MRI of the brain was read as right GUIDANCE SERVICES COORDINATOR stenosis only. IMPRESSION: It sounds like a TIA on Plavix, A long cardiac history. Will recheck her echo, Holter monitor. She will need a CardioNet and really, considering her heart history, more than likely, a loop recorder. She is already on aspirin and Plavix. We will check an MRI of the brain. If it shows an infarct and depending on what kind it shows, we have to consider maybe switching her to anticoagulation. She has had multiple infarcts in the past, although none that are cortically based. She should continue on her statin. I will be following her with you in the hospital. MD YANELI Givens/maura , 03:40 PM , 03:52 PM
[2017-12-03 00:18] VITALS: TEMP 98.6
--- NOTE | 2017-12-03 00:24 | ECG ---
Date Performed: 12/01/2017 Time Performed: 22:28:03 PTAGE: 77 years EKG: Sinus rhythm LEFT VENTRICULAR HYPERTROPHY AND ST-T CHANGE CONSISTENT WITH REPOLARIZATION ABNORMALITY ABNORMAL ECG PREVIOUS TRACING : 06/05/2016 19.53 Since the previous tracing, no significant change noted DOCTOR: Liam Beckham Interpretating Date/Time 12/03/2017 00:22:00
[2017-12-03 10:28] VITALS: BP 128/63; RESP 24
--- NOTE | 2017-12-03 11:16 | P.DS ---
Date of admission: 12/01/17 21:58 Primary care physician: Alcides Zarate DO Attending physician on discharge: Alcides Zarate Anticipated date of discharge: 12/03/17 Brief History from admission: She presented with sudden onset of problems moving her hand which resolved by the time she presented to the ED. She has a past H/O CVA. Patient update on day of discharge: Currently she remains asymptomatic of apparent TIA. Neuro consult noted and will need F/U with him after D/C. DS: Diagnosis - Discharge Diagnosis (1) TIA (transient ischemic attack) Status: Acute Diagnosis: Principal DS: Summary Hospital Course: Her sx resolved and has not recurred. Neuro W/U initiated and she will F/U as an outpatient. Her MRI reveals no evidence of a new CVA and patient is anxious for D/C. Cont meds per Neuro and F/U within a week in our office and with Neuro as ordered. - Time Spent with Patient Total time spent providing and/or coordinating discharge services: Less than 30 minutes - Quality: AMI Clinical Trial Participant: No Exam Vital signs: Vital Signs 12/02/17 12:00 12/02/17 15:00 12/02/17 16:00 Temperature 97.8 F Pulse Rate 97 H 70 80 Respiratory Rate 19 18 19 Blood Pressure 119/46 L Pulse Oximetry 94 L 12/02/17 17:15 12/02/17 19:44 12/02/17 20:00 Temperature 98.3 F 98.1 F Pulse Rate 85 75 Respiratory Rate 19 21 Blood Pressure 140/66 114/57 L Pulse Oximetry 96 95 93 L 12/03/17 00:00 12/03/17 08:20 12/03/17 08:25 Temperature 98.6 F Pulse Rate 71 62 Respiratory Rate 19 24 Blood Pressure 121/57 L 128/63 Pulse Oximetry 93 L 93 L Intake & Output 12/02/17 12/03/17 12/03/17 18:59 06:59 18:59 Intake Total 400 / 400 Balance 400 / 400 Weight 78 kg Intake: Oral 400 / 400 Other: # Voids 4 4 Date of Last Bowel Movement 12/02/17 - Constitutional no acute distress - Routine HEENT Exam Head: Present: normocephalic Eye: Present: PERRL, normal accommodation ENT: Present: mucous membranes moist - Routine Neck Exam Present: supple, full ROM - Routine Respiratory Exam Present: CTA bilaterally - Routine Cardiovascular Exam Present: RRR, S1, S2 - Routine Abdominal Exam Present: soft, normoactive bowel sounds - Routine Extremities Exam Present: full ROM - Routine Skin Exam Present: intact - Routine Neurological Exam Present: alert, oriented X3 Results Procedures completed during hospitalization: None Completed studies during hospitalization: Head CT and MRI. Labs on day of discharge: Labs from last 24 hours 12/03/17 12/02/17 12/02/17 08:26 16:20 16:20 ESR POC Glucose 115 H Total Protein (PEP) Pending Albumin (PEP) Pending Albumin/Globulin Ratio Pending [id number] Pending [id number] Pending Beta Globulins Pending Gamma Globulins Pending PEP Pathologist Comment Pending Methylmalonic Acid Pending TSH 1.400 12/02/17 16:20 ESR 15 POC Glucose Total Protein (PEP) Albumin (PEP) Albumin/Globulin Ratio [id number]-[id number] Beta Globulins Gamma Globulins PEP Pathologist Comment Methylmalonic Acid TSH - Impressions ITS Impressions Head CT 12/01/17 22:20 CONCLUSION: 1. Chronic changes with old lacunar type infarcts in the caudate heads bilaterally extending cephalad into the dalal radiata/centrum semiovale. 2. Stable left frontal para midline 1 cm meningioma. 3. Nothing acute. . Chest X-Ray 12/01/17 22:21 CONCLUSION: 1. Hyperinflation with no acute cardiac pulmonary process. 2. Azygos fissure in the medial right upper lung, an anatomic variant. Neck MRA 12/02/17 00:00 CONCLUSION: 1. Suboptimal study with probable moderate stenosis of the proximal right internal carotid artery and mild stenosis proximal left internal carotid artery. Both vertebral arteries are patent within the neck. Percent stenosis is calculated using the diameter of the stenotic region over the diameter of the normal distal internal carotid artery Head MRI 12/02/17 15:39 CONCLUSION: 1. No acute infarct, acute hemorrhage, midline shift or extra-axial fluid collections. 2. Mild periventricular white matter small vessel ischemic changes bilaterally. 3. Old lacunar infarcts involving the caudate heads bilaterally. 4. Enhancing left frontal parasagittal calcified extra-axial mass measuring 17 x 14 mm consistent with calcified meningioma. Head MRA 12/02/17 15:39 CONCLUSION: 1. 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 Discharge Plan - Discharge Disposition Patient Disposition: 01 Discharge Home - Discharge Condition Condition: Stable - Discharge Order Discharge Orders: Discharge Order (Routine); Ordered 12/03/17 Ordered By: Gunnar Ellington - Physicians Team Primary Care Provider: Alcides Zarate Attending Provider: Alcides Zarate Other Providers: Catalino Vazquez MD
[2017-12-03 11:28] VITALS: PULSE 82
--- NOTE | 2017-12-06 15:10 | HM ---
Date Performed: 12/02/2017 Time Performed: 18:19:00 HOOKUP DATE: 12/02/17 06:19:00 PM Sat ANALYSIS START TIME: 12/02/2017 6:24:00 PM ANALYSIS END TIME: 12/03/2017 11:06:41 AM PATIENT AGE: 77 PATIENT HEIGHT PATIENT WEIGHT: 168 DRUG LIST: ROOM [id number] PATIENT DIAGNOSIS: ACUTE STROKE OR TIA TEST NARRATIVE: The patient's average heart rate was 72 BPM. Heart rates greater than 120 B PM were noted < 1% of the time. Heart rates less than 50 BPM were noted 1% of the time. No pause s exceeding 2.0 seconds were noted. 408 ventricular ectopics, which represented 1% of the total b eat count, were noted. The highest ventricular ectopic frequency occurred from 07:00 PM to 08:00 PM Sat. During this time 50 VE(s) occurred. Ventricular ectopics were observed as 396 isolated beat(s) and as 6 couplet(s). No runs were noted. 462 supraventricular ectopics, which represented 1% of the total beat count, were noted. The highest supraventricular ectopic frequency occurred from 04:0 0 AM to 05:00 AM Sun. During this time 105 SVE(s) occurred. No episodes of ST depression (define d as -1.0 mm or more) were noted in channel 1. No episodes of ST depression (defined as -1.0 mm or m ore) were noted in channel 2. No episodes of ST depression (defined as -1.0 mm or more) were noted i n channel 3. NO DIARY WAS GIVEN TO PATIENT TEST INTERPRETATION: Sinus rhythm Occasional premature ventricular complexes and singlets and bidirectional couplets Occasional premat ure atrial complexes Signed by : Margaux Joy
== END 2017-12-03 11:55 | disposition home or self-care (01) ==
LOC: PHED 21:57 → PHEDA 21:58 → PHICU 12-02 00:20
PROVIDERS: ADMIT Family Medicine; ATTEND Family Medicine